=== PATIENT | female | born 1955 | race Caucasian/White ===

== ENCOUNTER 2020-08-22 12:38 | Emergency (ER) | payer MEDICARE, OTHER, SELFPAY ==
[2020-08-22] VITALS (7 sets, daily range): BP systolic 124–165; BP diastolic 65–108; PULSE 96–128; RESP 12–24; TEMP 36.9; O2SAT 92–97; BMI 29.5
--- NOTE | 2020-08-22 13:09 | DI.RAD.S_ITS ---
PROCEDURE: XR CHEST 1V INDICATIONS: chest pain/ sob TECHNIQUE: One view of the chest was acquired. COMPARISON: None. FINDINGS: Surgical changes and devices: None. Lungs and pleura: Lungs are clear. No pleural effusions or pneumothorax. Mediastinum: Mediastinal contours appear normal. Heart size is normal. Bones and chest wall: No suspicious bony lesions. Overlying soft tissues appear unremarkable. IMPRESSION: Normal for age, source of current chest pain symptoms is not seen. Dictated by: Fabien Powell M.D. on 08/22/2020 at 13:38 Approved by: Fabien Powell M.D. on 08/22/2020 at 13:38
[2020-08-22 13:22] LABS: Add Manual Diff / Slide Review NO; Basophils Absolute Auto 0 /uL (0-100); Basophils Percent Auto 0.4 % (0-2); Eosinophils Absolute Auto 300 /uL (0-450); Eosinophils Percent Auto 3.1 % (2-4); Hematocrit 39.8 % (36-46); Hemoglobin 13.9 g/dL (12.0-16.0); Lymphocytes Absolute Auto 1900 /uL (1100-4500); Mean Corpuscular Hemoglobin 33.2 PG (26-34); Mean Corpuscular Volume 94.7 fL (80-100); Monocytes Absolute Auto 900 /uL (0-900); Monocytes Percent Auto 9.1 % (3-14); Neutrophils Absolute Auto 6800 /uL (1500-7000); Neutrophils Percent Auto 68.4 % (50-75); Platelet Count 258 X10^3/uL (150-400); Red Blood Cell Count 4.21 X10^6/uL (4.0-5.2); Red Cell Distribution Width 12.3 % (11.6-14.8); White Blood Cell Count 9.9 X10^3/uL (4.5-11.0)
--- NOTE | 2020-08-22 13:27 | ED_ITS ---
HPI - Arrhythmia/Palpitations General Chief Complaint: Arrhythmia/Palpitations Stated Complaint: afib since today Time Seen by Provider: 08/22/20 12:50 Source: patient Mode of arrival: Ambulatory Limitations: no limitations History of Present Illness HPI narrative: Patient is a 64-year-old female with history of obstructive sleep apnea presenting today with heart palpitations. She has no history of atrial fibrillation but thinks that she may be in AFib because she felt her heart beating irregularly. She does not have a fitting CPAP machine so she has not been wearing it. She woke up this morning and was feeling some heart palpitations and shortness of breath. She said every time she took a deep breath she felt like she was short of breath. She does not feel short of breath now. She does have a history of esophageal spasm for which he takes Prilosec for twice a day she did feel like she had a spasm earlier today but it went away. She currently has no chest pain. She denies any fever. She denies lightheadedness dizziness or passing. She currently is in sinus rhythm on monitor. MD complaint: heart racing Duration: now resolved Related Data Allergies Allergy/AdvReac Type Severity Reaction Status Date / Time No Known Drug Allergies Allergy Verified 08/22/20 12:47 Review of Systems Review of Systems Narrative: GENERAL: Denies chills, fatigue, malaise, fever, sweats, travel HEENT: Denies sinus pain, ear pain, sore throat, difficulty swallowing, neck pain RESPIRATORY: See HPI CARDIOVASCULAR: Palpitations see HPI GASTROINTESTINAL: Denies nausea, vomiting, abdominal pain, diarrhea, constipation, melena. : Denies dysuria, frequency, incontinence, hematuria, urinary retention, flank pain. MUSCULOSKELETAL: Denies weakness, joint pain, or bony pain SKIN: No rash, no erythema, no pruritus NEUROLOGIC: Denies weakness, dizziness, headache, numbness, change in speech, confusion PSYCHIATRIC: No concerning psychosocial issues. 12 point review of systems is negative except for those stated above and HPI Patient History Medical History (Updated 08/22/20 @ 15:21 by Lary Mullen DO) Obstructive sleep apnea Social History Smoking Status: Never smoker Smoking Status: Never smoker alcohol intake frequency: a few times a month Substance Use Type: does not use Exam Initial Vital Signs Initial Vital Signs: Vital Signs Temperature 98.4 F 08/22/20 12:47 Pulse Rate 115 H 08/22/20 12:47 Respiratory Rate 12 08/22/20 12:47 Blood Pressure 152/108 H 08/22/20 12:47 Pulse Oximetry 97 08/22/20 12:47 GENERAL: Anxious 64-year-old female and in no acute distress. HEENT: Head atraumatic,EOMI, pupils reactive, face symmetric, moist mucous membranes CARDIOVASCULAR: Regular rate and rhythm without murmurs, rubs or gallops. RESPIRATORY: Breath sounds equal bilaterally, no wheezes rales or rhonchi. ABDOMEN: Soft, nontender. Normoactive bowel sounds all 4 quadrants. No guarding or rebound. EXTREMITIES: Normal range of motion, no clubbing or edema. Neurovascularly intact NEUROLOGICAL: Alert and oriented x4.Normal gait and speech. Cranial nerves II through XII grossly intact. SKIN: Warm, dry, no laceration, no petechiae, no rashes or lesions. Scores HEART Score Heart Score history: Slightly Suspicious Heart Score EKG: Normal Heart Score Age: > or = 65 years old Heart Score risk factors: 1-2 risk factors Heart Score troponin: < or = to normal limit Heart Score Total: 3 Wells' Criteria for PE Clinical signs and symptoms of DVT: No PE is #1 Dx or equally likely: No Heart rate > 100: Yes Immobilization at least 3 days or surg in previous 4 weeks: No History of PE or DVT: No Hemoptysis: No Malignancy w/Treatment within 6 months or palliative: No Wells' PE Score total: 1.5 Course Orders Ordered: ED Orders 08/22/20 13:04 Complete Blood Count AUTO DIFF Stat Comprehensive Metabolic Panel Stat Lipase Stat Troponin & CK Cardiac Panel Stat 08/22/20 13:09 XR chest 1V Stat Vital Signs Vital signs: Vital Signs - 8 hr 08/22/20 12:47 08/22/20 12:52 08/22/20 13:00 Temperature 98.4 F Pulse Rate 115 H 118 H 128 H Respiratory Rate 12 21 24 Blood Pressure 152/108 H 165/108 H Pulse Oximetry 97 95 94 08/22/20 13:30 08/22/20 14:00 08/22/20 14:30 Temperature Pulse Rate 108 H 102 H 100 H Respiratory Rate 19 15 18 Blood Pressure 146/93 H 132/65 135/86 Pulse Oximetry 94 93 92 08/22/20 15:00 Temperature Pulse Rate 96 H Respiratory Rate 23 Blood Pressure 124/71 Pulse Oximetry 93 MDM - Arrhythmia/Palpitations Lab Data Attestation: I reviewed the patient's lab results. Result diagrams: 08/22/20 13:04 08/22/20 13:04 Labs: Lab Results 08/22/20 08/22/20 Range/Units 13:04 13:04 WBC 9.9 (4.5-11.0) X10^3/uL RBC 4.21 (4.0-5.2) X10^6/uL Hgb 13.9 (12.0-16.0) g/dL Hct 39.8 (36-46) % MCV 94.7 (80-100) fL MCH 33.2 (26-34) PG MCHC 35.0 (30-36) % RDW 12.3 (11.6-14.8) % Plt Count 258 (150-400) X10^3/uL Neut % (Auto) 68.4 (50-75) % Lymph % (Auto) 19.0 L (25-40) % [place] % (Auto) 9.1 (3-14) % Eos % (Auto) 3.1 (2-4) % Baso % (Auto) 0.4 (0-2) % Neut # (Auto) 6800 (0884-6837) /uL Lymph # (Auto) 1900 (5876-6908) /uL [place] # (Auto) 900 (0-900) /uL Eos # (Auto) 300 (0-450) /uL Baso # (Auto) 0 (0-100) /uL Sodium 137 (137-145) mmol/L Potassium 4.0 (3.4-5.1) mmol/L Chloride 102 (98-107) mmol/L Carbon Dioxide 28 (22-32) mmol/L BUN 15 (7-17) mg/dL Creatinine 0.62 (0.52-1.04) mg/dL Estimated GFR > 60.0 (>60) mL/min BUN/Creatinine Ratio 24.2 H (6-22) Glucose 146 H (80-110) mg/dL Calcium 8.6 (8.4-10.2) mg/dL Total Bilirubin 0.5 (0.2-1.3) mg/dL AST 44 H (14-36) IU/L ALT 32 (<35) IU/L Alkaline Phosphatase 99 (38-126) U/L Total Creatine Kinase 46 (30-135) U/L CK-MB (CK-2) TNP CK-MB (CK-2) Rel Index TNP Troponin I < 0.012 (0.01-0.034) ng/mL Total Protein 7.4 (6.3-8.2) g/dL Albumin 4.1 (3.5-5.0) g/dL Globulin 3.3 (1.7-4.1) g/dL Albumin/Globulin Ratio 1.2 (1.0-2.8) Lipase 63 (23-300) U/L Imaging Data Chest x-ray: Radiologist's Impresson: PROCEDURE: XR CHEST 1V INDICATIONS: chest pain/ sob TECHNIQUE: One view of the chest was acquired. COMPARISON: None. FINDINGS: Surgical changes and devices: None. Lungs and pleura: Lungs are clear. No pleural effusions or pneumothorax. Mediastinum: Mediastinal contours appear normal. Heart size is normal. Bones and chest wall: No suspicious bony lesions. Overlying soft tissues appear unremarkable. IMPRESSION: Normal for age, source of current chest pain symptoms is not seen. Dictated by: Fabien Powell M.D. on 08/22/2020 at 13:38 Approved by: Fabien Powell M.D. on 08/22/2020 at 13:38 ECG Data Attestation: I personally reviewed and interpreted this ECG as follows: Prior ECG tracings: available for review Interpretation: Normal sinus rhythm rate 115 p.r. interval 130 QRS [address] changes no T-wave inversions similar to previous EKG MDM Narrative Medical decision making narrative: Patient is found to have PVCs occasionally on the monitor. She is quite an anxious person. Believe that her PVCs are what is causing her palpitations. She has no prior history of atrial fibrillation and it is not seen in the emergency department. She is having some shortness of breath but it is when she takes a deep breath she does not feel like she is feeling her lungs. She denies any shortness of breath with exertion in the started suddenly this morning. I do not suspect PE at this time. She has no recent travel no prior history of DVT. Discharge Plan Departure Patient Disposition: Home Clinical Impression: Ventricular premature beats Instructions: Premature Ventricular Beats Activity Restrictions/Additional Instructions: *You have been diagnosed with PVCs *What to do: You may require further cardiac testing, or a Holter monitor to monitor your heart rhythm *Continue to take medications as directed *Follow up with your primary care provider in 2-3 days *Return to ER if you should have worsening palpitations, shortness of breath, dizziness lightheadedness or passing or any new, worsening or concerning symptoms
[2020-08-22 13:32] LABS: Alanine Aminotransferase 32 IU/L (<35); Albumin 4.1 g/dL (3.5-5.0); Albumin Globulin Ratio 1.2 (1.0-2.8); Alkaline Phosphatase 99 U/L (38-126); Aspartate Aminotransferase 44 IU/L (14-36); BUN Creatinine Ratio 24.2 (6-22); Bilirubin Total 0.5 mg/dL (0.2-1.3); Blood Urea Nitrogen 15 mg/dL (7-17); Calcium 8.6 mg/dL (8.4-10.2); Carbon Dioxide 28 mmol/L (22-32); Chloride 102 mmol/L (98-107); Creatine Kinase 46 U/L (30-135); Estimated Glomerular Filt Rate > 60.0 mL/min (>60); Globulin 3.3 g/dL (1.7-4.1); Glucose 146 mg/dL (80-110); Lipase 63 U/L (23-300); Sodium 137 mmol/L (137-145); Total Protein 7.4 g/dL (6.3-8.2)
[2020-08-22 13:33] LABS: HEMOLYSIS 53 (0-50)
[2020-08-22 13:44] LABS: Troponin I < 0.012 ng/mL (0.01-0.034)
== END 2020-08-22 15:27 | disposition home or self-care (01) ==
PROVIDERS: Emergency Provider Emergency Medicine
DX: I49.3 Ventricular premature depolarization (principal); G47.33 Obstructive sleep apnea (adult) (pediatric)
CPT/HCPCS: 36415; 71045; 80053; 82550; 83690; 84484; 85025; 93005; 93010; 99283; 99284

== ENCOUNTER 2020-08-24 09:42 | Observation (INO) | payer MEDICARE, OTHER, SELFPAY ==
[2020-08-24] VITALS (13 sets, daily range): BP systolic 116–160; BP diastolic 74–98; PULSE 96–111; RESP 10–24; TEMP 36.3–37.3; O2SAT 91–97; BMI 31.4; BMI 31.6
--- NOTE | 2020-08-24 09:49 | DI.RAD.S_ITS ---
PROCEDURE: XR CHEST 1V INDICATIONS: chest pain TECHNIQUE: One view of the chest was acquired. COMPARISON: [facility], CR, XR CHEST 1V, 08/22/2020, 13:21. FINDINGS: Surgical changes and devices: None. Lungs and pleura: There is minimal blunting of the costophrenic angles. Low lung volumes are noted. This causes a crowded appearance to the lung markings and limits evaluation. No pneumothorax is seen. Mediastinum: Mediastinal contours appear normal. Heart size is normal. Bones and chest wall: No suspicious bony lesions. Age-appropriate bony degenerative changes are seen. Overlying soft tissues appear unremarkable. IMPRESSION: Low lung volumes with likely small bilateral pleural effusions. Dictated by: Macho Anderson M.D. on 08/24/2020 at 9:46 Approved by: Macho Anderson M.D. on 08/24/2020 at 9:46
--- NOTE | 2020-08-24 09:50 | DI.CT.S_ITS ---
PROCEDURE: CT ANGIO CHEST PE PROTOCOL INDICATIONS: right sided pain and hypoxia TECHNIQUE: After the administration of intravenous contrast, 2 mm thick sections acquired from the pulmonary apices to the posterior costophrenic angles. 3-dimensional maximum intensity projection (MIP) coronal and sagittal reformats were then acquired through the thorax. For radiation dose reduction, the following was used: automated exposure control, adjustment of mA and/or kV according to patient size. COMPARISON: [facility], CR, XR CHEST 1V, 08/24/2020, 10:27. [facility], CR, XR CHEST 1V, 08/22/2020, 13:21. FINDINGS: Image quality: Excellent. Pulmonary arteries: Pulmonary arteries are normal in size, and demonstrate no intraluminal filling defects to suggest central pulmonary embolism. Lungs and pleura: Patchy areas of ground-glass opacity can be seen. Dependent enhancing atelectasis can be seen. Low lung volumes are noted. This causes a crowded appearance to the lung markings and limits evaluation. No pneumothorax or pleural effusions can be seen. The central airways are patent. Mediastinum: Heart size is normal. Prominent pericardial fat can be seen. There is a moderate pericardial effusion. No mediastinal or hilar adenopathy. Thoracic aorta is normal in caliber and enhancement. Esophagus is normal in caliber. There is a moderate hiatal hernia. Bones and chest wall: No suspicious bony lesions. Ribs and thoracic spine appear intact throughout. Age-appropriate bony degenerative changes are seen. Accentuated thoracic kyphosis is seen. Thyroid gland demonstrates a 12 mm lesion on the right. No axillary or supraclavicular adenopathy. Abdomen: Visualized upper abdominal solid organs appear normal in the early arterial phase of enhancement. IMPRESSION: Negative for pulmonary embolism. Moderate pericardial effusion. Patchy areas of ground-glass opacity are seen, which are nonspecific, yet most likely related to pulmonary edema. 12 mm right thyroid lesion incidentally noted. When clinically appropriate, please consider a follow-up thyroid ultrasound for further evaluation. Incidental note is made of: Mild dependent atelectasis Prominent pericardial fat Moderate hiatal hernia Dictated by: Macho Anderson M.D. on 08/24/2020 at 10:12 Approved by: Macho Anderson M.D. on 08/24/2020 at 10:17
--- NOTE | 2020-08-24 09:55 | ED.CHESTPAIN ---
HPI - Chest Pain General Chief Complaint: Chest Pain Stated Complaint: Right sided chest pain,SOB Time Seen by Provider: 08/24/20 09:49 Source: patient, EMS and old records reviewed Mode of arrival: EMS Limitations: no limitations History of Present Illness HPI narrative: Patient is a 64-year-old female who presents with right-sided severe chest pain. She was actually seen and evaluated here 2 days prior with heart palpitations. She was noted to have PVCs at that time and discharged home. This morning at 5:00 a.m. she had severe sudden right-sided chest pain. It hurts every time she takes a breath position of comfort is upright it is worse when she lies back. She denies any cough. She says that she has been having some with her CPAP. MD complaint: chest pain Duration: constant Onset: during rest Pain location: right chest Severity: severe Severity scale (1-10): 10 Quality: sharp Pain radiation: none Related Data Allergies Allergy/AdvReac Type Severity Reaction Status Date / Time No Known Drug Allergies Allergy Verified 08/23/20 09:49 Review of Systems Review of Systems Narrative: GENERAL: Denies chills, fatigue, malaise, fever, sweats, travel HEENT: Denies sinus pain, ear pain, sore throat, difficulty swallowing, neck pain RESPIRATORY: See HPI CARDIOVASCULAR: See HPI GASTROINTESTINAL: Denies nausea, vomiting, abdominal pain, diarrhea, constipation, melena. : Denies dysuria, frequency, incontinence, hematuria, urinary retention, flank pain. MUSCULOSKELETAL: Denies weakness, joint pain, or bony pain SKIN: No rash, no erythema, no pruritus NEUROLOGIC: Denies weakness, dizziness, headache, numbness, change in speech, confusion PSYCHIATRIC: No concerning psychosocial issues. 12 point review of systems is negative except for those stated above and HPI Patient History Medical History Obstructive sleep apnea Social History Smoking Status: Never smoker Smoking Status: Never smoker alcohol intake frequency: a few times a month Substance Use Type: does not use Exam Initial Vital Signs Initial Vital Signs: Vital Signs Pulse Rate 106 H 08/24/20 09:51 Respiratory Rate 10 L 08/24/20 09:51 Pulse Oximetry 94 08/24/20 09:51 GENERAL: Alert 64-year-old female appears in pain and in no acute distress. HEENT: Head atraumatic,EOMI, pupils reactive, face symmetric, moist mucous membranes CARDIOVASCULAR: Regular rate and rhythm without murmurs, rubs or gallops. RESPIRATORY: Breath sounds equal bilaterally, no wheezes rales or rhonchi. Right-sided chest pain near sternum at pain is reproducible ABDOMEN: Soft, nontender. Normoactive bowel sounds all 4 quadrants. No guarding or rebound. EXTREMITIES: Normal range of motion, no clubbing or edema. Neurovascularly intact NEUROLOGICAL: Alert and oriented x4.Normal gait and speech. Cranial nerves II through XII grossly intact. SKIN: Warm, dry, no laceration, no petechiae, no rashes or lesions. Course Orders Ordered: ED Orders 08/24/20 09:42 COVID19 Stat 08/24/20 09:49 XR chest 1V Stat EKG-12 Lead Stat 08/24/20 09:50 CT angio chest PE protocol Stat 08/24/20 10:05 Complete Blood Count AUTO DIFF Stat Comprehensive Metabolic Panel Stat Lipase Stat Partial Thromboplastin Time Stat Prothrombin Time INR Stat Troponin & CK Cardiac Panel Stat 08/24/20 12:04 C-Reactive Protein Quant Stat Erythrocyte Sedimentation Rate Stat 08/24/20 12:18 Respiratory Panel (Film Array) Stat 08/24/20 12:20 EC echo doppler complete Urgent Colchicine (Colchicine 0.6 Mg Tablet) 0.6 mg PO BID SOBEIDA Indomethacin (Indomethacin 25 Mg Capsule) 25 mg PO Q8H SOBEIDA Discontinued Medications Aspirin (Aspirin 81 Mg Chew Tab) 324 mg PO NOW ONE Stop: 08/24/20 09:50 Last Admin: 08/24/20 10:12 Dose: 324 mg Documented by: SARAN Ketorolac Tromethamine (Ketorolac 60 Mg/2 Ml Vial) 30 mg IV NOW ONE Stop: 08/24/20 12:06 Last Admin: 08/24/20 12:12 Dose: 30 mg Documented by: Morphine Sulfate (Morphine 2 Mg/Ml Inj) 2 mg IV NOW ONE Stop: 08/24/20 09:57 Last Admin: 08/24/20 10:13 Dose: 2 mg Documented by: SARAN Vital Signs Vital signs: Vital Signs - 8 hr 08/24/20 09:51 08/24/20 10:00 08/24/20 10:22 Temperature 99.1 F Pulse Rate 106 H 108 H 110 H Respiratory Rate 10 L 24 24 Blood Pressure 160/90 H Pulse Oximetry 94 94 94 08/24/20 10:27 08/24/20 10:30 08/24/20 12:15 Temperature Pulse Rate 96 H 97 H 97 H Respiratory Rate 24 20 Blood Pressure 117/77 117/74 140/79 Pulse Oximetry 91 92 94 MDM - Chest Pain Lab Data Attestation: I reviewed the patient's lab results. Result diagrams: 08/24/20 10:05 08/24/20 10:05 Labs: Lab Results 08/24/20 08/24/20 08/24/20 Range/Units 09:42 10:05 10:05 WBC 15.2 H D (4.5-11.0) X10^3/uL RBC 4.41 (4.0-5.2) X10^6/uL Hgb 14.3 (12.0-16.0) g/dL Hct 41.8 (36-46) % MCV 94.8 (80-100) fL MCH 32.4 (26-34) PG MCHC 34.2 (30-36) % RDW 12.3 (11.6-14.8) % Plt Count 266 (150-400) X10^3/uL Neut % (Auto) 80.5 H (50-75) % Lymph % (Auto) 11.5 L (25-40) % [place] % (Auto) 5.7 (3-14) % Eos % (Auto) 1.7 L (2-4) % Baso % (Auto) 0.6 (0-2) % Neut # (Auto) 62277 H (0027-5196) /uL Lymph # (Auto) 1800 (4871-7576) /uL [place] # (Auto) 900 (0-900) /uL Eos # (Auto) 300 (0-450) /uL Baso # (Auto) 100 (0-100) /uL ESR (0-20) MM/HR PT 11.2 (10.1-12.7) SECONDS INR 1.0 (0.9-1.3) APTT 31 (26.4-36.2) SECONDS Sodium (137-145) mmol/L Potassium (3.4-5.1) mmol/L Chloride (98-107) mmol/L Carbon Dioxide (22-32) mmol/L BUN (7-17) mg/dL Creatinine (0.52-1.04) mg/dL Estimated GFR (>60) mL/min BUN/Creatinine Ratio (6-22) Glucose (80-110) mg/dL Calcium (8.4-10.2) mg/dL Total Bilirubin (0.2-1.3) mg/dL AST (14-36) IU/L ALT (<35) IU/L Alkaline Phosphatase (38-126) U/L Total Creatine Kinase (30-135) U/L CK-MB (CK-2) CK-MB (CK-2) Rel Index Troponin I (0.01-0.034) ng/mL C-Reactive Protein (<1.0) mg/dL Total Protein (6.3-8.2) g/dL Albumin (3.5-5.0) g/dL Globulin (1.7-4.1) g/dL Albumin/Globulin Ratio (1.0-2.8) Lipase (23-300) U/L SARS-CoV-2 (PCR) Negative (Negative) 08/24/20 08/24/20 08/24/20 Range/Units 10:05 10:05 10:05 WBC (4.5-11.0) X10^3/uL RBC (4.0-5.2) X10^6/uL Hgb (12.0-16.0) g/dL Hct (36-46) % MCV (80-100) fL MCH (26-34) PG MCHC (30-36) % RDW (11.6-14.8) % Plt Count (150-400) X10^3/uL Neut % (Auto) (50-75) % Lymph % (Auto) (25-40) % [place] % (Auto) (3-14) % Eos % (Auto) (2-4) % Baso % (Auto) (0-2) % Neut # (Auto) (5931-9789) /uL Lymph # (Auto) (1443-4116) /uL [place] # (Auto) (0-900) /uL Eos # (Auto) (0-450) /uL Baso # (Auto) (0-100) /uL ESR 12 (0-20) MM/HR PT (10.1-12.7) SECONDS INR (0.9-1.3) APTT (26.4-36.2) SECONDS Sodium 137 (137-145) mmol/L Potassium 4.4 (3.4-5.1) mmol/L Chloride 100 (98-107) mmol/L Carbon Dioxide 31 (22-32) mmol/L BUN 16 (7-17) mg/dL Creatinine 0.63 (0.52-1.04) mg/dL Estimated GFR > 60.0 (>60) mL/min BUN/Creatinine Ratio 25.4 H (6-22) Glucose 121 H (80-110) mg/dL Calcium 9.0 (8.4-10.2) mg/dL Total Bilirubin 0.5 (0.2-1.3) mg/dL AST 36 (14-36) IU/L ALT 37 H (<35) IU/L Alkaline Phosphatase 116 (38-126) U/L Total Creatine Kinase 45 (30-135) U/L CK-MB (CK-2) TNP CK-MB (CK-2) Rel Index TNP Troponin I < 0.012 (0.01-0.034) ng/mL C-Reactive Protein 1.8 H (<1.0) mg/dL Total Protein 7.8 (6.3-8.2) g/dL Albumin 4.5 (3.5-5.0) g/dL Globulin 3.3 (1.7-4.1) g/dL Albumin/Globulin Ratio 1.4 (1.0-2.8) Lipase 75 (23-300) U/L SARS-CoV-2 (PCR) (Negative) Imaging Data Chest x-ray: Radiologist's Impression: PROCEDURE: XR CHEST 1V INDICATIONS: chest pain TECHNIQUE: One view of the chest was acquired. COMPARISON: [facility], , XR CHEST 1V, 08/22/2020, 13:21. FINDINGS: Surgical changes and devices: None. Lungs and pleura: There is minimal blunting of the costophrenic angles. Low lung volumes are noted. This causes a crowded appearance to the lung markings and limits evaluation. No pneumothorax is seen. Mediastinum: Mediastinal contours appear normal. Heart size is normal. Bones and chest wall: No suspicious bony lesions. Age-appropriate bony degenerative changes are seen. Overlying soft tissues appear unremarkable. IMPRESSION: Low lung volumes with likely small bilateral pleural effusions. Dictated by: Macho Anderson M.D. on 08/24/2020 at 9:46 CT scan - chest: Radiologist's Impression: PROCEDURE: CT ANGIO CHEST PE PROTOCOL INDICATIONS: right sided pain and hypoxia TECHNIQUE: After the administration of intravenous contrast, 2 mm thick sections acquired from the pulmonary apices to the posterior costophrenic angles. 3-dimensional maximum intensity projection (MIP) coronal and sagittal reformats were then acquired through the thorax. For radiation dose reduction, the following was used: automated exposure control, adjustment of mA and/or kV according to patient size. COMPARISON: [facility], CR, XR CHEST 1V, 08/24/2020, 10:27. [facility], CR, XR CHEST 1V, 08/22/2020, 13:21. FINDINGS: Image quality: Excellent. Pulmonary arteries: Pulmonary arteries are normal in size, and demonstrate no intraluminal filling defects to suggest central pulmonary embolism. Lungs and pleura: Patchy areas of ground-glass opacity can be seen. Dependent enhancing atelectasis can be seen. Low lung volumes are noted. This causes a crowded appearance to the lung markings and limits evaluation. No pneumothorax or pleural effusions can be seen. The central airways are patent. Mediastinum: Heart size is normal. Prominent pericardial fat can be seen. There is a moderate pericardial effusion. No mediastinal or hilar adenopathy. Thoracic aorta is normal in caliber and enhancement. Esophagus is normal in caliber. There is a moderate hiatal hernia. Bones and chest wall: No suspicious bony lesions. Ribs and thoracic spine appear intact throughout. Age-appropriate bony degenerative changes are seen. Accentuated thoracic kyphosis is seen. Thyroid gland demonstrates a 12 mm lesion on the right. No axillary or supraclavicular adenopathy. Abdomen: Visualized upper abdominal solid organs appear normal in the early arterial phase of enhancement. IMPRESSION: Negative for pulmonary embolism. Moderate pericardial effusion. Patchy areas of ground-glass opacity are seen, which are nonspecific, yet most likely related to pulmonary edema. 12 mm right thyroid lesion incidentally noted. When clinically appropriate, please consider a follow-up thyroid ultrasound for further evaluation. Incidental note is made of: Mild dependent atelectasis Prominent pericardial fat Moderate hiatal hernia Dictated by: Macho Anderson M.D. on 08/24/2020 at 10:12 ECG Data Attestation: I personally reviewed and interpreted this ECG as follows: Prior ECG tracings: available for review Interpretation: Normal sinus rhythm rate 101 p.r. interval 140 QRS [address] elevation noted in lead 2 only no T-wave inversions no NV depression no evidence of torsades. MDM Narrative Medical decision making narrative: 1205 p.m. discussed case with cardiology Dr. Ahumada to recommends Toradol now, indomethacin 75 mg extended release twice a day along with colchicine 0.6 mg twice a day and need an echocardiogram. With pericardial effusion recommends admission. [address] Amato updated on Cardiology recommendations and accept patient to observation Discharge Plan Departure Patient Disposition: Admitted as Observation Clinical Impression: Pericarditis Admit Date/Time: 08/24/20 12:31 Admit Provider: Louis Reeder
[2020-08-24] MEDS: ASPIRIN 81 MG CHEW TAB 324 MG PO (10:12)
[2020-08-24 10:13] LABS: Add Manual Diff / Slide Review NO; Basophils Absolute Auto 100 /uL (0-100); Basophils Percent Auto 0.6 % (0-2); Eosinophils Absolute Auto 300 /uL (0-450); Eosinophils Percent Auto 1.7 % (2-4); Hematocrit 41.8 % (36-46); Hemoglobin 14.3 g/dL (12.0-16.0); Lymphocytes Absolute Auto 1800 /uL (1100-4500); Lymphocytes Percent Auto 11.5 % (25-40); Mean Corpuscular HGB Conc 34.2 % (30-36); Mean Corpuscular Hemoglobin 32.4 PG (26-34); Mean Corpuscular Volume 94.8 fL (80-100); Monocytes Absolute Auto 900 /uL (0-900); Monocytes Percent Auto 5.7 % (3-14); Neutrophils Absolute Auto 12300 /uL (1500-7000); Neutrophils Percent Auto 80.5 % (50-75); Platelet Count 266 X10^3/uL (150-400); Red Blood Cell Count 4.41 X10^6/uL (4.0-5.2); Red Cell Distribution Width 12.3 % (11.6-14.8); White Blood Cell Count 15.2 X10^3/uL (4.5-11.0)
[2020-08-24] MEDS: MORPHINE 2 MG/ML INJ IV (10:13)
[2020-08-24 10:15] LABS: COVID19 -Nasal RAPID Negative (Negative)
[2020-08-24 10:21] LABS: Prothrombin Time 11.2 SECONDS (10.1-12.7)
[2020-08-24 10:24] LABS: PTT Partial Thromboplastin Tim 31 SECONDS (26.4-36.2)
[2020-08-24 10:26] LABS: Alanine Aminotransferase 37 IU/L (<35); Albumin 4.5 g/dL (3.5-5.0); Albumin Globulin Ratio 1.4 (1.0-2.8); Alkaline Phosphatase 116 U/L (38-126); Aspartate Aminotransferase 36 IU/L (14-36); BUN Creatinine Ratio 25.4 (6-22); Bilirubin Total 0.5 mg/dL (0.2-1.3); Blood Urea Nitrogen 16 mg/dL (7-17); Carbon Dioxide 31 mmol/L (22-32); Chloride 100 mmol/L (98-107); Creatine Kinase 45 U/L (30-135); Estimated Glomerular Filt Rate > 60.0 mL/min (>60); Globulin 3.3 g/dL (1.7-4.1); Glucose 121 mg/dL (80-110); HEMOLYSIS < 15 (0-50); Lipase 75 U/L (23-300); Potassium 4.4 mmol/L (3.4-5.1); Sodium 137 mmol/L (137-145); Total Protein 7.8 g/dL (6.3-8.2)
[2020-08-24 10:38] LABS: Troponin I < 0.012 ng/mL (0.01-0.034)
[2020-08-24] MEDS: KETOROLAC 60 MG/2 ML VIAL 30 MG IV (12:12)
--- NOTE | 2020-08-24 12:20 | DI.ECHO.S_ITS ---
[facility] +---------+ : : [address] : [address] : : : : [id number] : : : : Phone: [phone]+ Echocardiogram Report + + :Name: GAIL CANDELARIA Study Date: 08/25/2020 Height: 66 in : :[facility] ReadingLocation: Weight: 195 lb : : Gender: Female BSA: 2.0 m2 : :: 1955 Age: 64 yrs BP: 126/95 mmHg: :Reason For Study: PERICARDIAL EFFUSION : :Ordering Physician: JAIME, : :JUAN MANUEL CONTRERAS Performed By: Maya Fam : :Referring: JUAN MANUEL SANDOVAL : + + Interpretation Summary 1) Mildly increased left ventricular thickness (concentric) with normal size, normal wall motion, and normal systolic function (EF 60-65%). 2) Normal right ventricular size and function. 3) No significant valvular abnormalities. 4) Pericardial space with circumferential echogenicity and trivial pericardial effusion. 5) No prior Echo available for comparison. Procedure: A two-dimensional transthoracic echocardiogram with color flow and Doppler was performed. The study quality was technically difficult. There is no prior echocardiogram noted for this patient. The heart rate ranged between 85-114 bpm during the study. Left Ventricle: The left ventricle is normal in size. There is mild concentric left ventricular hypertrophy. The ejection fraction is estimated to be 55-60%. Left ventricular systolic function appears normal without focal wall motion abnormalities. Right Ventricle: The right ventricle is normal in size and function. Atria: Both atria are normal in size. There is no Doppler evidence for an interatrial shunt. Mitral Valve: The mitral valve is normal in structure and function. There is trace mitral regurgitation. Aortic Valve: The aortic valve is grossly normal. The aortic valve opens well. There is no aortic valve stenosis. No aortic regurgitation is present. Tricuspid Valve: The tricuspid valve is normal in structure and function. Pulmonary artery pressures cannot be estimated because of the lack of a measurable TR jet velocity but the IVC suggests a CVP of around 8 mmHg. There is trace tricuspid regurgitation. Pulmonic Valve: The pulmonic valve is not well seen, but is grossly normal. There is no pulmonic valvular regurgitation. Great Vessels: The aortic root is normal size. The dimensions of the ascending aorta are normal. The IVC is dilated (diameter is greater than 2.1 cm) yet it collapses greater than 50% with a sniff. This suggests a right atrial pressure of 8 mm Hg. Pericardium/ Pleura Pericardial space with circumferential echogenicity and trivial pericardial effusion. There is no pleural effusion. MMode/2D Measurements & Calculations LVIDd: 4.7 cm LVOT diam: 2.0 cm LVIDs: 3.1 cm Ao root diam: 3.5 cm FS: 33.1 % asc Aorta Diam: 3.2 cm IVSd: 1.2 cm Ao Arch Diam (Prox Trans): 3.5 cm LVPWd: 1.2 cm LV lugo. diameter/BSA (cm/m^2): 2.4 LV sys. diameter/BSA (cm/m^2): 1.6 LA A2 area: 16.0 cm2 RA long axis: 3.8 cm LA A4 area: 11.4 cm2 RA area: 9.5 cm2 LA length (vol): 4.5 cm RA vol: 19.9 ml LA vol: 34.4 ml RA : 10.1 ml/m2 LA vol index: 17.4 ml/m2 IVC diam: 2.2 cm RVD1 (basal): 3.1 cm TAPSE: 1.7 cm Doppler Measurements & Calculations Ao V2 max: 129.1 cm/sec LVOT Max Jose: 114.0 cm/sec Ao V2 mean: 91.4 cm/sec LV V1 max P.2 mmHg Ao max P.7 mmHg LV V1 VTI: 22.0 cm Ao mean P.7 mmHg ELLA(I,D): 3.0 cm2 Ao V2 VTI: 23.5 cm ELLA(V,D): 2.8 cm2 sev ratio: 0.94 ELLA indexed to BSA (cm^2/m^2): 1.5 MV E max jose: 77.1 cm/sec PA V2 max: 84.7 cm/sec MV A max jose: 103.2 cm/sec PA V2 mean: 60.1 cm/sec MV E/A: 0.75 PA mean P.6 mmHg Med Peak E' Jose: 6.6 cm/sec PA pr(Accel): 15.6 mmHg E/E' med: 11.6 Lat Peak E' Jose: 6.7 cm/sec E/E' lat: 11.6 E/e' average: 11.6 MV dec time: 0.23 sec SV(LVOT): 70.5 ml Reading Physician:12:36 PM
[2020-08-24 12:23] LABS: C-Reactive Protein Quant 1.8 mg/dL (<1.0)
--- NOTE | 2020-08-24 12:31 | PC.NURSE ---
Pt presented with R sided chest pain; labs sent, ekg, CT and cxray done; pericarditis present and patient will be admitted. Will give report to floor RN when she calls back ([phone]).
[2020-08-24 12:33] LABS: Erythrocyte Sedimentation Rate 12 MM/HR (0-20)
--- NOTE | 2020-08-24 14:06 | PM.HP.1 ---
History of Present Illness History of Present Illness Date Patient Seen: 08/24/20 Time Patient Seen: 14:06 Chief complaint: Right sided chest pain,SOB Narrative: Irene Montoya is a 64 year old female with PMH of GERD, SEVERINO who presented to the ER today with R sided chest pain and shortness of breath. Over the past week approximately she has experienced fatigue and dyspnea on exertion. She presumed this was secondary to her SEVERINO but few days ago noted she was having palpitations and she was worried about atrial fibrillation. She actually came into the ER few days ago and had a negative troponin, negative chest x-ray, and she was noted to have PVCs on telemetry. She was discharged home and was actually feeling well up until early this morning when she had severe sudden right-sided chest pain. Her chest pain was right-sided and worse with inspiration, and improved with leaning forward. It was associated with shortness of breath which also improved with her leaning forward. She also feels as if her throat is full. She denies any lower extremity edema, recent fever, chills, nasal congestion, sinus congestion, cough. She has been having some epigastric discomfort that she related to GERD and increased her home omeprazole to twice daily instead of once in the morning about a week ago. She also received her 2nd COVID-19 vaccine on August 18. She only had injection site pain after her 2nd dose. She denies rash, joint pains, or myalgias. In the emergency room, she was mildly tachycardic and occasionally hypertensive. She was saturating well on room air. She was afebrile. Initial laboratory evaluation revealed a leukocytosis with a WBC of 15.2. The remainder of her CBC was unremarkable. Chemistries were unremarkable. CRP was mildly elevated at 1.8. Troponin was negative. Of note troponin was also negative in her prior ER visit 2 days ago. COVID-19 testing was negative. Full respiratory panel is pending. CXR showed low lung volumes with possible bilateral small pleural effusions. CT angiogram did not show evidence of pulmonary infarction but did show a moderate pericardial effusion. Patient History Medical History GERD (gastroesophageal reflux disease) Obstructive sleep apnea Surgical History History of section S/P [facility]-BSO Family & Social History Family history unavailable: Yes (Adopted, family history not known) Safety & Behavioral: Feels Safe in Current Yes Environment Been Physically Hurt or No Threatened By a Person Tobacco & Substance use: Smoking Status Never smoker alcohol intake frequency a few times a month Substance Use Type does not use Meds Home Medications and Allergies Home Medications Medication Instructions Recorded Confirmed Type omeprazole 1 tab PO BID 08/24/20 08/24/20 History Allergies Allergy/AdvReac Type Severity Reaction Status Date / Time No Known Drug Allergies Allergy Verified 08/23/20 09:49 Review of Systems Review of Systems Narrative: All other systems reviewed with the patient and are negative unless otherwise stated. Exam Vital Signs (past 8 hours): - 08/24/20 09:51 08/24/20 10:00 08/24/20 10:22 Temperature 99.1 F Pulse Rate 106 H 108 H 110 H Respiratory Rate 10 L 24 24 Blood Pressure 160/90 H Pulse Oximetry 94 94 94 08/24/20 10:27 08/24/20 10:30 08/24/20 12:15 Temperature Pulse Rate 96 H 97 H 97 H Respiratory Rate 24 20 Blood Pressure 117/77 117/74 140/79 Pulse Oximetry 91 92 94 08/24/20 13:15 Temperature 97.5 F L Pulse Rate 111 H Respiratory Rate 16 Blood Pressure 138/98 H Pulse Oximetry 96 Oxygen Delivery Method Room Air Narrative Exam Narrative: GENERAL APPEARANCE: Well developed, well nourished, in no acute distress. SKIN: Inspection of the skin reveals no rashes, ulcerations or petechiae. HEENT: Normocephalic atraumatic, extraocular muscles are intact, oropharynx is clear and mucous membranes are moist, neck is supple without adenopathy NECK: Supple and symmetric. There was no thyroid enlargement but there is mild R thyroid fullness, no tenderness, or masses were felt. CHEST: Normal AP diameter and normal contour without any kyphoscoliosis. LUNGS: Auscultation of the lungs revealed no wheezes, rhonchi, or rales. CARDIOVASCULAR: There was a tachycardic rate and regular rhythm without any murmurs, gallops, rubs. Peripheral pulses were 2+ and symmetric. ABDOMEN: Soft and nontender with normal bowel sounds. No ascites was noted. MUSCULOSKELETAL: There was no tenderness or effusions noted. Muscle strength and tone were normal. EXTREMITIES: No cyanosis, clubbing or edema. NEUROLOGIC: Alert and oriented x 3. Normal affect. Non-focal. Objective ECG Impression: Sinus tachycardia. Imaging Chest x-ray: My impression: Decreased inspiration but blunting of bilateral costophrenic angles and bialteral haziness possible due to lung volumes or vascular congestion. Radiologist's impression: PROCEDURE: XR CHEST 1V INDICATIONS: chest pain TECHNIQUE: One view of the chest was acquired. COMPARISON: [facility], , XR CHEST 1V, 08/22/2020, 13:21. FINDINGS: Surgical changes and devices: None. Lungs and pleura: There is minimal blunting of the costophrenic angles. Low lung volumes are noted. This causes a crowded appearance to the lung markings and limits evaluation. No pneumothorax is seen. Mediastinum: Mediastinal contours appear normal. Heart size is normal. Bones and chest wall: No suspicious bony lesions. Age-appropriate bony degenerative changes are seen. Overlying soft tissues appear unremarkable. IMPRESSION: Low lung volumes with likely small bilateral pleural effusions. CT scan - chest: Radiologist's impression: IMPRESSION: Negative for pulmonary embolism. Moderate pericardial effusion. Patchy areas of ground-glass opacity are seen, which are nonspecific, yet most likely related to pulmonary edema. 12 mm right thyroid lesion incidentally noted. When clinically appropriate, please consider a follow-up thyroid ultrasound for further evaluation. Incidental note is made of: Mild dependent atelectasis Prominent pericardial fat Moderate hiatal hernia Labs Result Diagrams: 08/24/20 10:05 08/24/20 10:05 Labs: Laboratory Results - last 24 hr 08/24/20 08/24/20 08/24/20 09:42 10:05 10:05 WBC 15.2 H D RBC 4.41 Hgb 14.3 Hct 41.8 MCV 94.8 MCH 32.4 MCHC 34.2 RDW 12.3 Plt Count 266 Neut % (Auto) 80.5 H Lymph % (Auto) 11.5 L [place] % (Auto) 5.7 Eos % (Auto) 1.7 L Baso % (Auto) 0.6 Neut # (Auto) 33161 H Lymph # (Auto) 1800 [place] # (Auto) 900 Eos # (Auto) 300 Baso # (Auto) 100 ESR PT 11.2 INR 1.0 APTT 31 Sodium Potassium Chloride Carbon Dioxide BUN Creatinine Estimated GFR BUN/Creatinine Ratio Glucose Calcium Total Bilirubin AST ALT Alkaline Phosphatase Total Creatine Kinase CK-MB (CK-2) CK-MB (CK-2) Rel Index Troponin I C-Reactive Protein Total Protein Albumin Globulin Albumin/Globulin Ratio Lipase SARS-CoV-2 (PCR) Negative 08/24/20 08/24/20 08/24/20 10:05 10:05 10:05 WBC RBC Hgb Hct MCV MCH MCHC RDW Plt Count Neut % (Auto) Lymph % (Auto) [place] % (Auto) Eos % (Auto) Baso % (Auto) Neut # (Auto) Lymph # (Auto) [place] # (Auto) Eos # (Auto) Baso # (Auto) ESR 12 PT INR APTT Sodium 137 Potassium 4.4 Chloride 100 Carbon Dioxide 31 BUN 16 Creatinine 0.63 Estimated GFR > 60.0 BUN/Creatinine Ratio 25.4 H Glucose 121 H Calcium 9.0 Total Bilirubin 0.5 AST 36 ALT 37 H Alkaline Phosphatase 116 Total Creatine Kinase 45 CK-MB (CK-2) TNP CK-MB (CK-2) Rel Index TNP Troponin I < 0.012 C-Reactive Protein 1.8 H Total Protein 7.8 Albumin 4.5 Globulin 3.3 Albumin/Globulin Ratio 1.4 Lipase 75 SARS-CoV-2 (PCR) Assessment & Plan Assessment & Plan narrative: Irene Montoya is a 64 year old female with PMH of GERD, SEVERINO who presented to the ER today with R sided chest pain and shortness of breath. Over the past week approximately she has experienced fatigue and dyspnea on exertion, admitted with pericardial effusion and pericarditis. 1. Pericarditis with moderate pericardial effusion, acute, present on admission - TTE ordered, unable to perform after 12:30 on weekends, okay for now to be tomorrow. Will continue telemetery. - cardiology consulted in the ER, recommended colchicine 0.6 mg BID and indomethacin 25 mg TID for treatment of pericarditis. - Respiratory panel pending, COVID 19 negative. Consider reaction to COVID 19 vaccine. - will repeat troponin at 8 hours, initial negative and negative 2 days ago. EKG sinus tachycardia without ST changes, no electrical alternans. 2. SEVERINO - continue home cpap 3. GERD - continue home PPI, 20 mg BID. Will replace with formulary protonix. Code: full, surrogate decision maker is daughter carmenza Dispo: admit under observation status, anticipate discharge home tomorrow if improved symptomatically and no evidence of tamponade on TTE. DVT: SCDs. hold chemical while on NSAID therapy for pericarditis, patient ambulatory. also possible but unlikely procedure if she clinically worsens..
--- NOTE | 2020-08-24 14:11 | PC.NURSE ---
Addendum entered by Yuli Le R.N. 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 She denies any alcohol withdrawal. Indocin just given with some chocolate pudding. Original Note: Assess- Patient is A&OX3, she states that her sternum and chest are not hurting at this time, and that toradol given down in the ER has really helped her. Skin check done and can be seen under physical assessment. Patients lung sounds cta, she is breathing shallow. She is on RA and her sats are 97%. No oxygen needed. Patient is on Tele and reading is Sinus Tach. She is heplocked and resting in bed comfortably.
[2020-08-24 14:48] LABS: Adenovirus Not Detected (Not Detect); Bordetella pertussis Not Detected (Not Detect); Chlamydophila pneumoniae Not Detected (Not Detect); Coronavirus 229E Not Detected (Not Detect); Coronavirus HKU1 Not Detected (Not Detect); Coronavirus NL 63 Not Detected (Not Detect); Coronavirus OC43 Not Detected (Not Detect); Human Metapneumovirus Not Detected (Not Detect); Human Rhinovirus/Enterovirus Not Detected (Not Detect); Influenza A Not Detected (Not Detect); Influenza B Not Detected (Not Detect); Mycoplasma pneumoniae Not Detected (Not Detect); Parainfluenza Virus 1 Not Detected (Not Detect); Parainfluenza Virus 2 Not Detected (Not Detect); Parainfluenza Virus 3 Not Detected (Not Detect); Parainfluenza Virus 4 Not Detected (Not Detect); Respiratory Syncytial Virus Not Detected (Not Detect); SARS- CoV-2 Not Detected (Not Detecte)
[2020-08-24] MEDS: INDOMETHACIN 25 MG CAPSULE PO ×2 (15:10→22:08)
[2020-08-24 18:44] LABS: NT-proBNP (BNP-Adult 18+) 61 pg/mL (<125)
[2020-08-24 18:46] LABS: Troponin I < 0.012 ng/mL (0.01-0.034)
[2020-08-24] MEDS: ACETAMINOPHEN 325 MG TABLET 650 MG PO (18:49)
[2020-08-24] MEDS: CALCIUM CARBONATE 500 MG TAB 1000 MG PO (19:00)
[2020-08-24] MEDS: COLCHICINE 0.6 MG TABLET PO (20:21)
[2020-08-24] MEDS: PANTOPRAZOLE 20 MG TABLET PO (20:21)
[2020-08-24] MEDS: SODIUM CHLORIDE 0.9% FLUSH 10 ML IV (21:07)
[2020-08-25 00:12] VITALS: BP 126/95; PULSE 114; RESP 20; TEMP 36.2; O2SAT 95
--- NOTE | 2020-08-25 00:40 | PC.NURSE ---
Addendum entered by Taylor Burns R.N. 08/25/20 06:52: States she was able to sleep last night and is less SOB with exertion this morning and chest pain has also lessened to 4/10. RA sat 94% Original Note: 2342: patient is alert and oriented. Respirations shallow and hurts to take a deep breath. Noted to be SOB when up to bathroom. Breath sounds diminished especially at bases. Using home CPAP and had RT add adaptor so oxygen can be bled into CPAP at 3L/min and sat is at 96%. States pain is 5-6/10 but better than has been and declined offer of pain medication. HRR but tachy at 124 when up to bathroom but currently is in upper 90's. Denies nausea. BT hypoactive; abdomen is soft. Denies dysuria, frequency or urgency with urination. Is able to move self in bed. Up to bathroom with SBA; denies weakness or unsteadiness. Fall risk score is low.
[2020-08-25 05:54] VITALS: BP 133/75; PULSE 96; RESP 18; TEMP 36.6; O2SAT 92
[2020-08-25 05:57] VITALS: O2SAT 94
[2020-08-25] MEDS: INDOMETHACIN 25 MG CAPSULE PO ×2 (05:57→14:11)
[2020-08-25 06:02] LABS: Add Manual Diff / Slide Review NO; Basophils Absolute Auto 100 /uL (0-100); Basophils Percent Auto 0.5 % (0-2); Eosinophils Absolute Auto 300 /uL (0-450); Eosinophils Percent Auto 2.5 % (2-4); Hematocrit 39.6 % (36-46); Hemoglobin 13.8 g/dL (12.0-16.0); Lymphocytes Absolute Auto 1800 /uL (1100-4500); Lymphocytes Percent Auto 14.4 % (25-40); Mean Corpuscular HGB Conc 34.8 % (30-36); Monocytes Absolute Auto 1500 /uL (0-900); Monocytes Percent Auto 11.6 % (3-14); Neutrophils Absolute Auto 8900 /uL (1500-7000); Platelet Count 252 X10^3/uL (150-400); Red Blood Cell Count 4.17 X10^6/uL (4.0-5.2); Red Cell Distribution Width 12.5 % (11.6-14.8); White Blood Cell Count 12.6 X10^3/uL (4.5-11.0)
[2020-08-25 06:14] LABS: Blood Urea Nitrogen 23 mg/dL (7-17); Carbon Dioxide 33 mmol/L (22-32); Chloride 98 mmol/L (98-107); Estimated Glomerular Filt Rate > 60.0 mL/min (>60); Glucose 140 mg/dL (80-110); HEMOLYSIS < 15 (0-50); Magnesium 1.9 mg/dL (1.6-2.3); Potassium 4.1 mmol/L (3.4-5.1); Sodium 135 mmol/L (137-145)
[2020-08-25] MEDS: PANTOPRAZOLE 20 MG TABLET PO (06:47)
[2020-08-25 07:11] VITALS: BP 135/83; PULSE 96; RESP 16; TEMP 36.4; O2SAT 94
[2020-08-25] MEDS: SODIUM CHLORIDE 0.9% FLUSH 10 ML IV (08:51)
[2020-08-25] MEDS: COLCHICINE 0.6 MG TABLET PO (08:51)
--- NOTE | 2020-08-25 11:43 | PC.NURSE ---
Patient denies chest pain and sob. She is comfortable and has had her Echo.. Awaiting results from the doctor. Resting and visting with her daughter in law
[2020-08-25 12:41] VITALS: BP 117/74; PULSE 98; RESP 16; TEMP 36.7; O2SAT 92
--- NOTE | 2020-08-25 13:12 | PM.DS.1 ---
History of Present Illness History of Present Illness Date Patient Seen: 08/25/20 Time Patient Seen: 13:12 Chief complaint: Right sided chest pain,SOB Narrative: Irene Montoya is a 64 year old female with PMH of GERD, SEVERINO who presented to the ER today with R sided chest pain and shortness of breath. Over the past week approximately she has experienced fatigue and dyspnea on exertion. She presumed this was secondary to her SEVERINO but few days ago noted she was having palpitations and she was worried about atrial fibrillation. She actually came into the ER few days ago and had a negative troponin, negative chest x-ray, and she was noted to have PVCs on telemetry. She was discharged home and was actually feeling well up until early this morning when she had severe sudden right-sided chest pain. Her chest pain was right-sided and worse with inspiration, and improved with leaning forward. It was associated with shortness of breath which also improved with her leaning forward. She also feels as if her throat is full. She denies any lower extremity edema, recent fever, chills, nasal congestion, sinus congestion, cough. She has been having some epigastric discomfort that she related to GERD and increased her home omeprazole to twice daily instead of once in the morning about a week ago. She also received her 2nd COVID-19 vaccine on August 18. She only had injection site pain after her 2nd dose. She denies rash, joint pains, or myalgias. In the emergency room, she was mildly tachycardic and occasionally hypertensive. She was saturating well on room air. She was afebrile. Initial laboratory evaluation revealed a leukocytosis with a WBC of 15.2. The remainder of her CBC was unremarkable. Chemistries were unremarkable. CRP was mildly elevated at 1.8. Troponin was negative. Of note troponin was also negative in her prior ER visit 2 days ago. COVID-19 testing was negative. Full respiratory panel is pending. CXR showed low lung volumes with possible bilateral small pleural effusions. CT angiogram did not show evidence of pulmonary infarction but did show a moderate pericardial effusion. Discharge Providers Provider Date of admission: 08/24/20 12:31 Discharge Date: 08/25/20 Discharge provider: Louis Reeder DO Summary Hospital Course Discharge Diagnosis: 1. Pericarditis with moderate pericardial effusion, acute, present on admission, improved 2. SEVERINO, chronic 3. GERD, chronic Hospital Course: Irene Montoya is a 64 year old female with PMH of GERD, SEVERINO who presented to the ER with R sided chest pain and shortness of breath. CTA showed moderate pericardial effusion and given clinical history she was diagnosed with pericarditis. Her EKG was unremarkable. She had no elevation in her troponins and her symptoms improved with NSAID therapy. Telemetry overnight showed no acute events and her symptoms were improved the following day with colchicine and indomethacin. Echocardiogram showed an increase in Echogenicity of her pericardium and H trace pericardial effusion much improved from her CT imaging. She should continue on NSAID therapy and start to taper from indomethacin after her symptoms resolved. She should continue on colchicine for at least 3 months. She will continue on her home omeprazole twice daily given need for NSAIDs upon discharge. Status at Discharge Cognitive/behavioral status at discharge: oriented Exam Vital Signs (past 8 hours): - 08/25/20 05:54 08/25/20 05:57 08/25/20 07:11 Temperature 97.9 F 97.6 F Pulse Rate 96 H 96 H Respiratory Rate 18 16 Blood Pressure 133/75 135/83 Pulse Oximetry 92 94 94 08/25/20 12:41 Temperature 98.0 F Pulse Rate 98 H Respiratory Rate 16 Blood Pressure 117/74 Pulse Oximetry 92 Oxygen Delivery Method Room Air Oxygen Flow Rate 0 Narrative Exam Narrative: GENERAL APPEARANCE: Well developed, well nourished, in no acute distress. SKIN: Inspection of the skin reveals no rashes, ulcerations or petechiae. HEENT: Normocephalic atraumatic, extraocular muscles are intact, oropharynx is clear and mucous membranes are moist, neck is supple without adenopathy NECK: Supple and symmetric. There was no thyroid enlargement but there is mild R thyroid fullness, no tenderness, or masses were felt. CHEST: Normal AP diameter and normal contour without any kyphoscoliosis. LUNGS: Auscultation of the lungs revealed no wheezes, rhonchi, or rales. CARDIOVASCULAR: There was a tachycardic rate and regular rhythm without any murmurs, gallops, rubs. Peripheral pulses were 2+ and symmetric. ABDOMEN: Soft and nontender with normal bowel sounds. No ascites was noted. MUSCULOSKELETAL: There was no tenderness or effusions noted. Muscle strength and tone were normal. EXTREMITIES: No cyanosis, clubbing or edema. NEUROLOGIC: Alert and oriented x 3. Normal affect. Non-focal. Objective Labs Result Diagrams: 08/25/20 05:52 08/25/20 05:52 Labs: Laboratory Results - last 24 hr 08/24/20 08/24/20 08/24/20 12:25 18:06 18:06 WBC RBC Hgb Hct MCV MCH MCHC RDW Plt Count Neut % (Auto) Lymph % (Auto) [place] % (Auto) Eos % (Auto) Baso % (Auto) Neut # (Auto) Lymph # (Auto) [place] # (Auto) Eos # (Auto) Baso # (Auto) Sodium Potassium Chloride Carbon Dioxide BUN Creatinine Estimated GFR BUN/Creatinine Ratio Glucose Calcium Magnesium Troponin I < 0.012 NT-Pro-B Natriuret Pep 61 Chlamy pneumoniae PCR Not detected Adenovirus (PCR) Not detected B.parapertussis DNA PCR Not detected Coronavirus OC43 (PCR) Not detected Coronavirus HKU1 (PCR) Not detected Coronavirus 229E (PCR) Not detected SARS-CoV-2 (PCR) Not detected Coronavirus NL63 (PCR) Not detected Human Metapneumovir PCR Not detected Influenza Type A (PCR) Not detected Influenza Type B (PCR) Not detected M. pneumoniae (PCR) Not detected Parainfluenza 1 (PCR) Not detected Parainfluenza 2 (PCR) Not detected Parainfluenza 3 (PCR) Not detected Parainfluenza 4 (PCR) Not detected RSV (PCR) Not detected Entero/Rhino (PCR) Not detected 08/25/20 08/25/20 05:52 05:52 WBC 12.6 H RBC 4.17 Hgb 13.8 Hct 39.6 MCV 95.0 MCH 33.0 MCHC 34.8 RDW 12.5 Plt Count 252 Neut % (Auto) 71.0 Lymph % (Auto) 14.4 L [place] % (Auto) 11.6 Eos % (Auto) 2.5 Baso % (Auto) 0.5 Neut # (Auto) 8900 H Lymph # (Auto) 1800 [place] # (Auto) 1500 H Eos # (Auto) 300 Baso # (Auto) 100 Sodium 135 L Potassium 4.1 Chloride 98 Carbon Dioxide 33 H BUN 23 H Creatinine 0.82 Estimated GFR > 60.0 BUN/Creatinine Ratio 28.0 H Glucose 140 H Calcium 9.0 Magnesium 1.9 Troponin I NT-Pro-B Natriuret Pep Chlamy pneumoniae PCR Adenovirus (PCR) B.parapertussis DNA PCR Coronavirus OC43 (PCR) Coronavirus HKU1 (PCR) Coronavirus 229E (PCR) SARS-CoV-2 (PCR) Coronavirus NL63 (PCR) Human Metapneumovir PCR Influenza Type A (PCR) Influenza Type B (PCR) M. pneumoniae (PCR) Parainfluenza 1 (PCR) Parainfluenza 2 (PCR) Parainfluenza 3 (PCR) Parainfluenza 4 (PCR) RSV (PCR) Entero/Rhino (PCR) [facility] Medical History GERD (gastroesophageal reflux disease) Obstructive sleep apnea Surgical History History of section S/P [facility]-BSO Social History household members: none Smoking Status: Former smoker Discharge Plan Discharge Plan Patient Disposition: Home Provider Discharge Comment: You were admitted to the hospital with presumed pericarditis and pericardial effusion. Your echocardiogram showed improvement in the size of the effusion and no significant effects on its function. You should start to taper indomethacin about 2 weeks after your symptoms resolve. Colchicine should continue for 3 months. Please continue taking your increased omeprazole dosing while on NSAID therapy. Discharge orders & Medications Prescriptions: New colchicine 0.6 mg Tablet 0.6 mg PO BID 90 Days Qty: 180 RF: 0 indomethacin 25 mg capsule 25 mg PO Q8H 30 Days Qty: 90 RF: 0 Continued omeprazole 20 mg 1 tab PO BID RF: 0 Diet/Activity/Treatments Diet: Diet as Tolerated Activity: As tolerated Discharge Data Attending Provider: Louis Reeder VTE Deep Vein Thrombosis/Pulmonary Embolism Present on Admission: No
--- NOTE | 2020-08-25 14:40 | CM.DANOTE ---
Discharge Planning/Care Management DCP: assessment: case received, EMR reviewed, discussed in Team Rounds. Dr. Reeder stated tests were in process and he anticipated pt would be able to d/c home later today. A d/c order is now in place for home setting. Pt's daughter in law is in room and will be transporting her home after all d/c paperwork is completed. CM Discharge Assessment Start: 08/25/20 14:39 Freq: Status: Active Protocol: Document 08/25/20 14:39 ITV (Rec: 08/25/20 14:40 ITV [id number]) Discharge Planning Assessment Advance Directives? Yes Advance Directives on File No History Provided By Medical Record Prior Living Arrangements House Household Members none Is patient alert and oriented? Yes Discharge Plan Home
== END 2020-08-25 14:15 | disposition home or self-care (01) ==
LOC: ED 12:19 → AC 12:32
PROVIDERS: Admitting Provider Internal Medicine; Emergency Provider Emergency Medicine; Referring Provider Emergency Medicine; Visit Provider Internal Medicine
DX: I30.9 Acute pericarditis, unspecified (principal); R07.9 Chest pain, unspecified; R06.02 Shortness of breath; R53.83 Other fatigue; K21.9 Gastro-esophageal reflux disease without esophagitis; G47.33 Obstructive sleep apnea (adult) (pediatric); Z20.822 Contact with and (suspected) exposure to COVID-19
CPT/HCPCS: 36415; 71045; 71275; 80048; 80053; 82550; 83690; 83735; 83880; 84484; 85025; 85610; 85651; 85730; 86140; 87633; 87635; 93005; 93010; 93306; 94760; 96374; 96375; 99283; 99284; C9803; G0378; J1885; J2270; Q9967

== ENCOUNTER → 2020-09-18 13:16 | Outpatient (CLI) | payer MEDICARE, OTHER, SELFPAY ==
[2020-08-24 14:42] VITALS: BMI 31.6
== END ==
PROVIDERS: PCP Family Medicine; Referring Provider Family Medicine; Visit Provider Family Medicine
DX: M85.852 Other specified disorders of bone density and structure, left thigh (principal); Z78.0 Asymptomatic menopausal state; Z90.722 Acquired absence of ovaries, bilateral; Z87.891 Personal history of nicotine dependence
CPT/HCPCS: 77080

== ENCOUNTER → 2020-10-09 13:14 | Outpatient (CLI) | payer MEDICARE, OTHER, SELFPAY ==
[2020-08-24 14:42] VITALS: BMI 31.6
--- NOTE | 2020-10-09 13:15 | DI.MG.S_ITS ---
BILATERAL DIGITAL DIAGNOSTIC MAMMOGRAM 3D/2D: 10/09/2020 CLINICAL: Short follow up, due bilateral. Comparison is made to exams dated: 12/01/2019 mammogram, 04/24/2019 mammogram, and 04/14/2019 mammogram - [facility]. The tissue of both breasts is heterogeneously dense. This may lower the sensitivity of mammography. There is irregular equal density architectural distortion with an indistinct margin in the left breast at 1 o'clock posterior depth. This is not significantly changed. No other significant masses, calcifications, or other findings are seen in either breast. IMPRESSION: INCOMPLETE: NEEDS ADDITIONAL IMAGING EVALUATION The irregular equal density architectural distortion in the left breast is indeterminate. An ultrasound is recommended. This exam was interpreted at Station ID: [id number]. NOTE: For mammograms, a report in lay terms will be sent to the patient. Approximately 15% of breast malignancies will not be visualized mammographically. In the management of a palpable breast mass, a negative mammogram must not discourage biopsy of a clinically suspicious lesion. Electronically Signed By: Rigoberto Lyn M.D. ddp/:10/09/2020 13:52:36 ACR BI-RADS Category 0: Incomplete 3340F
--- NOTE | 2020-10-09 13:52 | DI.US.S_ITS ---
LIMITED ULTRASOUND OF LEFT BREAST: 10/09/2020 CLINICAL: Patient returns today to evaluate a focal asymmetry in the left breast. Comparison is made to exams dated: 10/09/2020 mammogram - [facility], 12/01/2019 mammogram, 04/24/2019 mammogram, 04/14/2019 mammogram, 10/12/2018 mammogram, and 03/22/2018 stereotactic biopsy - [facility]. Real-time ultrasound of the left breast 12-2 o'clock region was performed on the area of interest. No discrete cystic or solid mass lesion identified in the area of mammographic abnormality. IMPRESSION: PROBABLY BENIGN There are no abnormalities seen in the left breast to correspond with the architectural distortion at 12-2 o'clock. A follow-up mammogram in 6 months is recommended to demonstrate 2 year stability. This exam was interpreted at Station ID: [id number]. Electronically Signed By: Rigoberto Lyn M.D. ddalberto/:10/09/2020 14:23:34 letter sent: Followup Recommended Ultrasound BI-RADS: 3 Probably benign
== END ==
PROVIDERS: PCP Family Medicine; Referring Provider Family Medicine; Visit Provider Family Medicine
DX: R92.8 Other abnormal and inconclusive findings on diagnostic imaging of breast (principal)
CPT/HCPCS: 76642; 77066; G0279

== ENCOUNTER → 2020-10-10 13:36 | Outpatient (CLI) | payer MEDICARE, OTHER, SELFPAY ==
[2020-08-24 14:42] VITALS: BMI 31.6
--- NOTE | 2020-10-10 13:38 | DI.ECHO.S_ITS ---
[facility] +---------+ : : [address] : : : : [id number] : : : : Phone: [phone]+ Echocardiogram Report + + :Name: GAIL CANDELARIA Study Date: 10/10/2020 Height: 66 in : :[facility] ReadingLocation: Weight: 198 lb: : Gender: Female BSA: 2.0 m2 : :: 1955 Age: 64 yrs : :Reason For Study: PERICARDIAL EFFUSION, PERICARDITIS : :Ordering Physician: VIOLETA, : :TIFFANIE Performed By: Maya Fam : :Referring: TIFFANIE MCDANIEL : + + Interpretation Summary There is mild concentric left ventricular hypertrophy. Left ventricular ejection fraction is estimated to be 60 +/- 5%. Pericardial space with circumferential echogenicity suggestive of organization and a small loculated pericardial effusion. There are no echocardiographic indications of cardiac tamponade. This is unchanged compared to the previous study. Procedure: A two-dimensional transthoracic echocardiogram with color flow and Doppler was performed in limited views only to assess pericardial effusion and pericarditis.. Left Ventricle: The left ventricle is normal in size. There is mild concentric left ventricular hypertrophy. Left ventricular ejection fraction is estimated to be 60 +/- 5%. Left ventricular wall motion is normal. Right Ventricle: The right ventricle is normal in size and function. Atria: The left atrial size is normal. Right atrial size is normal. Great Vessels: The IVC is of normal diameter and collapses greater than 50% with a sniff. This suggests a low right atrial pressure of 3 mm Hg. Pericardium/ Pleura Pericardial space with circumferential echogenicity suggestive of organization and a small loculated pericardial effusion. There are no echocardiographic indications of cardiac tamponade. This is unchanged compared to the previous study. There is no pleural effusion. MMode/2D Measurements & Calculations LVIDd: 4.7 cm LA A2 area: 21.9 cm2 LVIDs: 3.3 cm LA A4 area: 20.1 cm2 FS: 28.8 % LA length (vol): 5.7 cm IVSd: 1.0 cm LA vol: 65.4 ml LVPWd: 1.2 cm LA vol index: 32.8 ml/m2 LV lugo. diameter/BSA (cm/m^2): 2.4 LV sys. diameter/BSA (cm/m^2): 1.7 RA long axis: 5.0 cm RVD1 (basal): 2.6 cm RA area: 15.9 cm2 TAPSE: 2.0 cm RA vol: 43.0 ml RA : 21.6 ml/m2 IVC diam: 1.7 cm Reading Physician:03:15 PM
== END ==
PROVIDERS: PCP Family Medicine; Referring Provider Family Medicine; Visit Provider Family Medicine
DX: I31.3 Pericardial effusion (noninflammatory) (principal); I30.0 Acute nonspecific idiopathic pericarditis; I51.7 Cardiomegaly
CPT/HCPCS: 93307

== ENCOUNTER → 2021-03-31 13:04 | Outpatient (CLI) | payer MEDICARE, OTHER, SELFPAY ==
[2020-08-24 14:42] VITALS: BMI 31.6
--- NOTE | 2021-03-31 13:05 | DI.MG.S_ITS ---
UNILATERAL LEFT DIGITAL DIAGNOSTIC MAMMOGRAM 3D/2D: 03/31/2021 CLINICAL: Short term follow up for the left breast. Comparison is made to exams dated: 10/09/2020 ultrasound, 10/09/2020 mammogram - [facility], 12/01/2019 mammogram, 04/24/2019 mammogram, 10/12/2018 mammogram, and 03/22/2018 mammogram - [facility]. The tissue of left breast is heterogeneously dense. This may lower the sensitivity of mammography. There is a stable region of mild irregular architectural distortion with indistinct margins in the left breast at 1 o'clock posterior depth. This appears similar to the prior studies. No other significant masses or calcifications are seen in the breast. IMPRESSION: BENIGN There is no mammographic evidence of malignancy. A 1 year screening mammogram is recommended. The small area of architectural distortion in the left breast at 1 o'clock is benign given stability of greater than 2 years and absence of a sonographic correlate on prior evaluation. This exam was interpreted at Station ID: [id number]. NOTE: For mammograms, a report in lay terms will be sent to the patient. Approximately 15% of breast malignancies will not be visualized mammographically. In the management of a palpable breast mass, a negative mammogram must not discourage biopsy of a clinically suspicious lesion. Electronically Signed By: Rigoberto evans/:03/31/2021 14:37:05 letter sent: Normal Exam ACR BI-RADS Category 2: Benign Finding(s) 3342F
== END ==
PROVIDERS: PCP Family Medicine; Referring Provider Family Medicine; Visit Provider Family Medicine
DX: R92.8 Other abnormal and inconclusive findings on diagnostic imaging of breast (principal)
CPT/HCPCS: 77065; G0279

== ENCOUNTER → 2021-05-24 09:46 | Outpatient (CLI) | payer MEDICARE, OTHER, SELFPAY ==
[2020-08-24 14:42] VITALS: BMI 31.6
--- NOTE | 2021-05-24 09:47 | DI.RAD.S_ITS ---
PROCEDURE: XR FOOT LT MIN 3V INDICATIONS: possible break TECHNIQUE: 3 views of the foot were acquired. COMPARISON: None. FINDINGS: Bones: There is a comminuted fracture seen involving the distal 5th metatarsal shaft. There is a mildly displaced fracture involving the 4th metatarsal shaft. No additional intra-articular involvement can be seen. An additional minimally displaced fractures seen involving the proximal 5th metatarsal. Incidental note is made of an accessory ossicle, an os peroneum. Age-appropriate bony degenerative changes are seen. Incidental note is made of an enthesophyte at the Achilles insertion. Soft tissues: No tibiotalar joint effusion. Achilles tendon appears normal. IMPRESSION: Acute appearing 4th and 5th metatarsal shaft fractures, without intra-articular involvement. An additional fracture can be seen involving the proximal 5th metatarsal, which may be subacute. Dictated by: Macho Anderson M.D. on 05/24/2021 at 9:11 Approved by: Macho Anderson M.D. on 05/24/2021 at 9:13
== END ==
PROVIDERS: PCP Family Medicine; Referring Provider Physician Assistant; Visit Provider Physician Assistant
DX: S92.342A Displaced fracture of fourth metatarsal bone, left foot, initial encounter for closed fracture (principal); S92.352A Displaced fracture of fifth metatarsal bone, left foot, initial encounter for closed fracture; W19.XXXA Unspecified fall, initial encounter
CPT/HCPCS: 73630

== ENCOUNTER → 2021-10-01 12:12 | Outpatient (CLI) | payer MEDICARE, OTHER, SELFPAY ==
[2020-08-24 14:42] VITALS: BMI 31.6
[2021-10-01 13:17] LABS: Add Manual Diff / Slide Review NO; Basophils Absolute Auto 0 /uL (0-100); Basophils Percent Auto 0.5 % (0-2); Eosinophils Absolute Auto 200 /uL (0-450); Eosinophils Percent Auto 4.1 % (2-4); Hematocrit 40.8 % (36-46); Hemoglobin 14.1 g/dL (12.0-16.0); Lymphocytes Absolute Auto 1800 /uL (1100-4500); Mean Corpuscular HGB Conc 34.7 % (30-36); Mean Corpuscular Hemoglobin 32.7 PG (26-34); Mean Corpuscular Volume 94.3 fL (80-100); Monocytes Absolute Auto 600 /uL (0-900); Monocytes Percent Auto 9.4 % (3-14); Neutrophils Absolute Auto 3400 /uL (1500-7000); Platelet Count 249 X10^3/uL (150-400); Red Blood Cell Count 4.33 X10^6/uL (4.0-5.2); Red Cell Distribution Width 11.9 % (11.6-14.8)
[2021-10-01 13:31] LABS: Alanine Aminotransferase 24 IU/L (<35); Albumin 4.4 g/dL (3.5-5.0); Albumin Globulin Ratio 1.3 (1.0-2.8); Alkaline Phosphatase 67 U/L (38-126); Aspartate Aminotransferase 33 IU/L (14-36); BUN Creatinine Ratio 23.3 (6-22); Bilirubin Total 0.5 mg/dL (0.2-1.3); Blood Urea Nitrogen 20 mg/dL (7-17); C-Reactive Protein Quant < 0.5 mg/dL (<1.0); Calcium 9.5 mg/dL (8.4-10.2); Carbon Dioxide 31 mmol/L (22-32); Chloride 101 mmol/L (98-107); Estimated Glomerular Filt Rate > 60.0 mL/min (>60); Globulin 3.3 g/dL (1.7-4.1); Glucose 89 mg/dL (80-110); HEMOLYSIS < 15 (0-50); Potassium 4.3 mmol/L (3.4-5.1); Sodium 139 mmol/L (137-145); Total Protein 7.7 g/dL (6.3-8.2)
[2021-10-01 13:35] LABS: Rheumatoid Factor < 8.6 IU/mL (<12.0)
[2021-10-01 13:46] LABS: Erythrocyte Sedimentation Rate 1 MM/HR (0-20)
[2021-10-01 14:16] LABS: Vitamin B12 976 pg/mL (239-931)
[2021-10-01 15:52] LABS: Vitamin D 25 Hydroxy (D3) 67.4 ng/mL (30.0-100.0)
[2021-10-03 17:46] LABS: ANA Screen, IFA Negative (.)
== END ==
PROVIDERS: PCP Family Medicine; Referring Provider Family Medicine; Visit Provider Family Medicine
DX: E55.9 Vitamin D deficiency, unspecified (principal); I31.9 Disease of pericardium, unspecified; M79.609 Pain in unspecified limb; R20.2 Paresthesia of skin; Z13.21 Encounter for screening for nutritional disorder; Z13.228 Encounter for screening for other metabolic disorders
CPT/HCPCS: 36415; 80053; 82306; 82607; 85025; 85651; 86038; 86140; 86430

== ENCOUNTER → 2021-10-13 13:52 | Outpatient (CLI) | payer MEDICARE, OTHER, SELFPAY ==
[2020-08-24 14:42] VITALS: BMI 31.6
--- NOTE | 2021-10-13 13:56 | DI.MG.S_ITS ---
BILATERAL DIGITAL SCREENING MAMMOGRAM 3D/2D WITH CAD: 10/13/2021 CLINICAL: Routine screening. Comparison is made to exams dated: 03/31/2021 mammogram, 10/09/2020 mammogram - [facility], 12/01/2019 mammogram, 04/24/2019 mammogram, 04/14/2019 mammogram, and 10/12/2018 mammogram - [facility]. The tissue of both breasts is heterogeneously dense. This may lower the sensitivity of mammography. Current study was also evaluated with a Computer Aided Detection (CAD) system. No significant masses, calcifications, or other findings are seen in either breast. There has been no significant interval change. IMPRESSION: NEGATIVE There is no mammographic evidence of malignancy. A 1 year screening mammogram is recommended. This exam was interpreted at Station ID: [id number]. NOTE: For mammograms, a report in lay terms will be sent to the patient. Approximately 15% of breast malignancies will not be visualized mammographically. In the management of a palpable breast mass, a negative mammogram must not discourage biopsy of a clinically suspicious lesion. Electronically Signed By: Jackelin baig/rahel:10/13/2021 16:16:13 letter sent: Normal Exam ACR BI-RADS Category 1: Negative 3341F
== END ==
PROVIDERS: PCP Family Medicine; Referring Provider Family Medicine; Visit Provider Family Medicine
DX: Z12.31 Encounter for screening mammogram for malignant neoplasm of breast (principal)
CPT/HCPCS: 77063; 77067

== ENCOUNTER → 2022-10-19 08:34 | Outpatient (CLI) | payer MEDICARE, OTHER, SELFPAY ==
[2020-08-24 14:42] VITALS: BMI 31.6
--- NOTE | 2022-10-19 | DI.MG.S_ITS ---
BILATERAL DIGITAL SCREENING MAMMOGRAM 3D/2D WITH CAD: 10/19/2022 Comparison is made to exams dated: 10/13/2021 mammogram, 10/09/2020 mammogram - [facility], 12/01/2019 mammogram, and 04/14/2019 mammogram - [facility]. Both breasts are heterogeneously dense, which may obscure small masses (category c / 51-75% glandular tissue). Current study was also evaluated with a Computer Aided Detection (CAD) system. There are benign calcifications in both breasts. There also are benign post operative findings in the left breast. No significant masses, calcifications, or other findings are seen in either breast. There has been no significant interval change. IMPRESSION: BENIGN There is no mammographic evidence of malignancy. A 1 year screening mammogram is recommended. Based on the Tyrer Cuzick model (a risk assessment model) the patient's lifetime risk is 8.7% and her 10 year risk is 4.8%. According to the ACR, ACS, and NCCN guidelines, an annual breast MRI exam along with mammogram is recommended if the patient's lifetime risk is 20% or greater. This exam was interpreted at Station ID: [id number]. NOTE: For mammograms, a report in lay terms will be sent to the patient. Approximately 15% of breast malignancies will not be visualized mammographically. In the management of a palpable breast mass, a negative mammogram must not discourage biopsy of a clinically suspicious lesion. Electronically Signed By: Valeriano ferguson/rahel:10/19/2022 09:59:52 letter sent: Normal Exam ACR BI-RADS Category 2: Benign Finding(s) 3342F
== END ==
PROVIDERS: PCP Family Medicine; Referring Provider Family Medicine; Visit Provider Family Medicine
DX: Z12.31 Encounter for screening mammogram for malignant neoplasm of breast (principal)
CPT/HCPCS: 77063; 77067

== ENCOUNTER → 2022-12-22 14:56 | Outpatient (CLI) | payer MEDICARE, OTHER, SELFPAY ==
[2020-08-24 14:42] VITALS: BMI 31.6
--- NOTE | 2022-12-22 14:58 | DI.RAD.S_ITS ---
PROCEDURE: XR ANKLE RT MIN 3V INDICATIONS: chronic right ankle pain TECHNIQUE: 3 views of the ankle were acquired. COMPARISON: None. FINDINGS: Bones: No displaced fracture or dislocation. There are mild degenerative changes. Plantar calcaneal enthesopathy. Soft tissues: No suspicious calcifications. IMPRESSION: Mild degenerative changes. Plantar calcaneal enthesopathy. No acute radiographic abnormality. If there is high concern for further derangement, consider MRI evaluation. Dictated by: Krish Gutiérrez M.D. on 12/22/2022 at 16:53 Approved by: Krish Gutiérrez M.D. on 12/22/2022 at 16:55
== END ==
PROVIDERS: PCP Family Medicine; Referring Provider Family Medicine; Visit Provider Family Medicine
DX: M25.571 Pain in right ankle and joints of right foot (principal); M77.31 Calcaneal spur, right foot
CPT/HCPCS: 73610

== ENCOUNTER → 2022-12-25 | Outpatient (CLI) | payer MEDICARE, OTHER, SELFPAY ==
[2020-08-24 14:42] VITALS: BMI 31.6
--- NOTE | 2022-12-25 09:51 | DI.RAD.S_ITS ---
Bone Density Report Name: GAIL CANDELARIA Age: 67 Sex: Female Ethnicity: White Date of : 1955 Indication: osteopenia; Referring Provider: TIFFANIE MCDANIEL Study: Bone densitometry was performed. Exam Date: December 25, 2022 Accession number: [id number] Bone Density: Region BMD T-score Z-score Classification AP Spine(L1-L4) 0.833 -1.9 0.1 Osteopenia Femoral Neck (Left) 0.619 -2.1 -0.3 Osteopenia Total Hip (Left) 0.753 -1.6 -0.1 Osteopenia Femoral Neck (Right) 0.651 -1.8 0.0 Osteopenia Total Hip (Right) 0.740 -1.7 -0.2 Osteopenia Total Hip Mean 0.747 -1.7 -0.2 Osteopenia World Health Organization criteria for BMD impression classify patients as: Normal (T-score at or above -1.0), Osteopenia (T-score between -1.0 and -2.5), or Osteoporosis (T-score at or below -2.5). 10-year Fracture Risk(1): Major Osteoporotic Fracture 11% Hip Fracture 2.0% Reported Risk Factors: [place] (), Neck BMD=0.619, BMI=30.7 (1) FRAX(R) Version 3.08. Fracture probability calculated for an untreated patient. Fracture probability may be lower if the patient has received treatment. Previous Exams: -- Region Exam Age BMD T-score BMD Change BMD Change Date g/cm2 vs Baseline vs Previous -- AP Spine (L1-L4) 12/25/2022 67 0.833 -1.9 -0.071 (-7.9%)# -0.071 (-7.9%)# 09/18/2020 64 0.904 -1.3 Total Hip(Left) 12/25/2022 67 0.753 -1.6 0.013 (1.8%)# 0.013 (1.8%)# 09/18/2020 64 0.739 -1.7 Total Hip(Right) 12/25/2022 67 0.740 -1.7 0.028 (4.0%)# 0.028 (4.0%)# 09/18/2020 64 0.712 -1.9 -- *Denotes significance at 95% confidence level, LSC for AP Spine = 0.022 g/cm2, LSC for Total Hip = 0.027 g/cm2 # Denotes dissimilar scan types or analysis methods Impression: The patient has low bone mass, based on the Left Femoral Neck T-score. The patient has an estimated ten-year risk of hip fracture of 2% and an estimated ten-year risk of major fracture of 11%, based on the WHO FRAX algorithm. No significant bone loss was observed. Discussion: BONE DENSITY IS LOW AT ONE OR MORE SKELETAL SITES. This patient's lowest T-score is low at one or more skeletal sites. It meets the World Health Organization's (WHO) criteria for low bone mass (T-score between -1.0 and -2.5). The patient's 10-year risk of fracture as calculated by FRAX is less than the threshold where pharmacological therapy is recommended by the National Osteoporosis Foundation (NOF). However, all treatment decisions require clinical judgment and consideration of individual patient factors, including patient preferences, comorbidities, previous drug use, risk factors not captured in the FRAX model (e.g., frailty, falls, vitamin D deficiency, increased bone turnover, interval significant decline in bone density) and possible under or overestimation of fracture risk by FRAX. The patient should follow a healthful lifestyle (good nutrition with adequate calcium and vitamin D, and appropriate weight-bearing exercise). Follow-Up: Consider repeating this study in 2 to 3 years to reassess this patient's status, or sooner if there is some new clinical indication. Reported by: VALORIE MCCRARY MD on 12/25/2022 12:53:00 PM.
[2022-12-25 12:07] LABS: Add Manual Diff / Slide Review NO; Basophils Absolute Auto 0 /uL (0-100); Basophils Percent Auto 0.4 % (0-2); Eosinophils Absolute Auto 300 /uL (0-450); Eosinophils Percent Auto 3.4 % (2-4); Hematocrit 39.1 % (36-46); Hemoglobin 13.8 g/dL (12.0-16.0); Lymphocytes Absolute Auto 1800 /uL (1100-4500); Lymphocytes Percent Auto 23.5 % (25-40); Mean Corpuscular HGB Conc 35.2 % (30-36); Mean Corpuscular Hemoglobin 32.6 PG (26-34); Mean Corpuscular Volume 92.6 fL (80-100); Monocytes Absolute Auto 600 /uL (0-900); Monocytes Percent Auto 8.3 % (3-14); Neutrophils Absolute Auto 5000 /uL (1500-7000); Neutrophils Percent Auto 64.4 % (50-75); Platelet Count 274 X10^3/uL (150-400); Red Blood Cell Count 4.23 X10^6/uL (4.0-5.2); Red Cell Distribution Width 12.4 % (11.6-14.8); White Blood Cell Count 7.7 X10^3/uL (4.5-11.0)
[2022-12-25 12:24] LABS: Alanine Aminotransferase 17 IU/L (<35); Albumin 3.9 g/dL (3.5-5.0); Albumin Globulin Ratio 1.2 (1.0-2.8); Alkaline Phosphatase 79 U/L (38-126); Aspartate Aminotransferase 23 IU/L (14-36); BUN Creatinine Ratio 36.6 (6-22); Bilirubin Total 0.6 mg/dL (0.2-1.3); Blood Urea Nitrogen 26 mg/dL (7-17); Calcium 8.7 mg/dL (8.4-10.2); Carbon Dioxide 30 mmol/L (22-32); Chloride 101 mmol/L (98-107); Cholesterol 171 mg/dL (140-199); Estimated Glomerular Filt Rate > 60 mL/min (>60); Globulin 3.3 g/dL (1.7-4.1); Glucose 87 mg/dL (80-110); HDL Cholesterol 46 mg/dL (40-60); HEMOLYSIS < 15 (0-50); LDL Cholesterol Calculated 107 mg/dL (<100); Potassium 4.2 mmol/L (3.4-5.1); Sodium 137 mmol/L (137-145); Total Protein 7.2 g/dL (6.3-8.2); Triglycerides 91 mg/dL (35-150)
== END ==
PROVIDERS: PCP Family Medicine; Referring Provider Family Medicine; Visit Provider Family Medicine
DX: M85.852 Other specified disorders of bone density and structure, left thigh (principal); Z78.0 Asymptomatic menopausal state; K21.9 Gastro-esophageal reflux disease without esophagitis; R20.2 Paresthesia of skin; M79.609 Pain in unspecified limb; Z90.710 Acquired absence of both cervix and uterus
CPT/HCPCS: 36415; 77080; 80053; 80061; 84443; 85025

== ENCOUNTER → 2023-02-11 09:54 | Outpatient (CLI) | payer MEDICARE, OTHER, SELFPAY ==
[2020-08-24 14:42] VITALS: BMI 31.6
--- NOTE | 2023-02-11 09:55 | DI.RAD.S_ITS ---
PROCEDURE: XR CHEST 2V INDICATIONS: Cough TECHNIQUE: 2 views of the chest were acquired. COMPARISON: None. FINDINGS: Surgical changes and devices: None. Lungs and pleura: Lungs are clear. No pleural effusions or pneumothorax. Mediastinum: Mediastinal contours are normal. Heart size is normal. Bones and chest wall: No suspicious bony abnormalities. Soft tissues appear unremarkable. IMPRESSION: No acute cardiopulmonary abnormality. Approved by: Nicko Caro M.D. on 02/11/2023 at 13:50
== END ==
PROVIDERS: PCP Family Medicine; Referring Provider Nurse Practitioner Family; Visit Provider Nurse Practitioner Family
DX: R05.9 Cough, unspecified (principal)
CPT/HCPCS: 71046

== ENCOUNTER → 2023-09-30 10:40 | Outpatient (CLI) | payer MEDICARE, OTHER, SELFPAY ==
[2020-08-24 14:42] VITALS: BMI 31.6
[2023-09-30 11:37] LABS: Add Manual Diff / Slide Review NO; Basophils Absolute Auto 0 /uL (0-100); Basophils Percent Auto 0.6 % (0-2); Eosinophils Absolute Auto 400 /uL (0-450); Eosinophils Percent Auto 5.1 % (2-4); Hematocrit 43.1 % (36-46); Hemoglobin 14.9 g/dL (12.0-16.0); Lymphocytes Absolute Auto 2100 /uL (1100-4500); Lymphocytes Percent Auto 29.8 % (25-40); Mean Corpuscular HGB Conc 34.7 % (30-36); Mean Corpuscular Volume 98.2 fL (80-100); Monocytes Absolute Auto 700 /uL (0-900); Monocytes Percent Auto 10.4 % (3-14); Neutrophils Absolute Auto 3800 /uL (1500-7000); Neutrophils Percent Auto 54.1 % (50-75); Platelet Count 282 X10^3/uL (150-400); Red Blood Cell Count 4.39 X10^6/uL (4.0-5.2)
[2023-09-30 11:44] LABS: HEMOLYSIS < 15 (0-50)
[2023-09-30 11:49] LABS: Alanine Aminotransferase 23 IU/L (<35); Albumin 4.3 g/dL (3.5-5.0); Albumin Globulin Ratio 1.3 (1.0-2.8); Alkaline Phosphatase 96 U/L (38-126); Aspartate Aminotransferase 30 IU/L (14-36); BUN Creatinine Ratio 16.9 (6-22); Bilirubin Total 0.6 mg/dL (0.2-1.3); Blood Urea Nitrogen 12 mg/dL (7-17); Calcium 9.2 mg/dL (8.4-10.2); Carbon Dioxide 32 mmol/L (22-32); Chloride 101 mmol/L (98-107); Estimated Glomerular Filt Rate > 60 mL/min (>60); Globulin 3.3 g/dL (1.7-4.1); Glucose 81 mg/dL (80-110); Potassium 4.4 mmol/L (3.4-5.1); Sodium 138 mmol/L (137-145); Total Protein 7.6 g/dL (6.3-8.2)
[2023-09-30 12:46] LABS: Erythrocyte Sedimentation Rate 19 MM/HR (0-20)
[2023-09-30 18:32] LABS: C-Reactive Protein Quant 0.8 mg/dL (<1.0)
[2023-10-01 02:06] LABS: Rheumatoid Factor < 8.6 IU/mL (<12.0)
[2023-10-02 14:50] LABS: CCP Antibodies IgG/IgA 0 units (0-19)
== END ==
PROVIDERS: PCP Family Medicine; Referring Provider Family Medicine; Visit Provider Family Medicine
DX: M19.90 Unspecified osteoarthritis, unspecified site (principal); K21.9 Gastro-esophageal reflux disease without esophagitis; J42 Unspecified chronic bronchitis
CPT/HCPCS: 36415; 80053; 85025; 85651; 86140; 86200; 86430

== ENCOUNTER → 2023-10-22 08:11 | Outpatient (CLI) | payer MEDICARE, OTHER, SELFPAY ==
[2020-08-24 14:42] VITALS: BMI 31.6
--- NOTE | 2023-10-22 | DI.MG.S_ITS ---
BILATERAL DIGITAL SCREENING MAMMOGRAM 3D/2D WITH CAD: 10/22/2023 CLINICAL: Routine screening. Comparison is made to exams dated: 10/19/2022 mammogram, 10/13/2021 mammogram, 10/09/2020 mammogram, and 03/31/2021 mammogram - [facility]. Both breasts are heterogeneously dense, which may obscure small masses (category c / 51-75% glandular tissue). Current study was also evaluated with a Computer Aided Detection (CAD) system. There are benign calcifications in both breasts. There also are benign post operative findings and biopsy clip in the left breast. No significant masses, calcifications, or other findings are seen in either breast. There has been no significant interval change. IMPRESSION: BENIGN There is no mammographic evidence of malignancy. A 1 year screening mammogram is recommended. Based on the Tyrer Cuzick model (a risk assessment model) the patient's lifetime risk is 8.2% and her 10 year risk is 4.8%. According to the ACR, ACS, and NCCN guidelines, an annual breast MRI exam along with mammogram is recommended if the patient's lifetime risk is 20% or greater. This exam was interpreted at Station ID: [id number]. NOTE: For mammograms, a report in lay terms will be sent to the patient. Approximately 15% of breast malignancies will not be visualized mammographically. In the management of a palpable breast mass, a negative mammogram must not discourage biopsy of a clinically suspicious lesion. Electronically Signed By: Nicko kim/rahel:10/22/2023 11:55:17 letter sent: Normal Exam ACR BI-RADS Category 2: Benign Finding(s) 3342F
== END ==
PROVIDERS: PCP Family Medicine; Referring Provider Family Medicine; Visit Provider Family Medicine
DX: Z12.31 Encounter for screening mammogram for malignant neoplasm of breast (principal); R92.333 Mammographic heterogeneous density, bilateral breasts
CPT/HCPCS: 77063; 77067

== ENCOUNTER → 2023-10-29 14:30 | Outpatient (CLI) | payer MEDICARE, OTHER, SELFPAY ==
[2020-08-24 14:42] VITALS: BMI 31.6
--- NOTE | 2023-10-29 14:32 | DI.RAD.S_ITS ---
PROCEDURE: XR CERVICAL SPINE 2V OR 3V INDICATIONS: chronic shoulder, wrist, knee pain and neuropathy TECHNIQUE: 3 view(s) of the cervical spine were acquired. COMPARISON: None. FINDINGS: Bones: No fractures or dislocations to the C7 level. There are multilevel degenerative changes of the cervical spine with facet and uncovertebral arthropathy, disc height loss with degenerative endplate changes and spurring. The lateral masses of C1 appear intact on the odontoid view. No suspicious bony lesions. Soft tissues: No prevertebral soft tissue swelling. IMPRESSION: Mild multilevel degenerative changes of the lumbar spine. Dictated by: Raúl Orozco M.D. on 10/29/2023 at 16:43 Approved by: Raúl Orozco M.D. on 10/29/2023 at 16:43
--- NOTE | 2023-10-29 14:32 | DI.RAD.S_ITS ---
PROCEDURE: XR KNEE RT 3V INDICATIONS: chronic shoulder, wrist, knee pain and neuropathy TECHNIQUE: 3 views of the knee were acquired. COMPARISON: None. FINDINGS: Bones: No fractures or dislocations. Moderate osteoarthritic changes of the knee with moderate medial compartment joint space narrowing. Mild osteophytosis. No suspicious bony lesions. Soft tissues: Small joint effusion. No suspicious soft tissue calcifications. IMPRESSION: Moderate osteoarthritic changes of the knee. No acute osseous abnormalities. Dictated by: Raúl Orozco M.D. on 10/29/2023 at 16:44 Approved by: Raúl Orozco M.D. on 10/29/2023 at 16:44
--- NOTE | 2023-10-29 14:32 | DI.RAD.S_ITS ---
PROCEDURE: XR WRIST RT MIN 3V INDICATIONS: chronic shoulder, wrist, knee pain and neuropathy TECHNIQUE: 4 views of the wrist were acquired. COMPARISON: None. FINDINGS: Bones: No fractures or dislocations. No suspicious bony lesions. Soft tissues: No suspicious soft tissue calcifications. IMPRESSION: No acute bony abnormality. Dictated by: Raúl Orozco M.D. on 10/29/2023 at 16:47 Approved by: Raúl Orozco M.D. on 10/29/2023 at 16:48
--- NOTE | 2023-10-29 14:32 | DI.RAD.S_ITS ---
PROCEDURE: XR SHOULDER RT MIN 2V INDICATIONS: chronic shoulder, wrist, knee pain and neuropathy TECHNIQUE: 3 views of the shoulder were acquired. COMPARISON: None. FINDINGS: Bones: No fractures or dislocations. Moderate acromioclavicular joint degeneration. No suspicious bony lesions. Visualized ribs appear intact. Soft tissues: No suspicious soft tissue calcifications. IMPRESSION: 1. No acute bony abnormality. 2. Moderate acromioclavicular joint degeneration. Dictated by: Raúl Orozco M.D. on 10/29/2023 at 16:46 Approved by: Raúl Orozco M.D. on 10/29/2023 at 16:47
--- NOTE | 2023-10-29 14:32 | DI.RAD.S_ITS ---
PROCEDURE: XR LUMBAR SPINE 2-3V INDICATIONS: chronic shoulder, wrist, knee pain and neuropathy TECHNIQUE: 3 views of the lumbar spine were acquired. COMPARISON: None. FINDINGS: Bones: 5 [id number] vertebrae are present. Mild retrolisthesis of L3 on L4. Mild anterolisthesis of L5 on S1. There is multilevel facet arthropathy, worse at L4-5 and L5-S1. Mild multilevel disc height loss with degenerative endplate changes and spurring is present. No vertebral body compression fractures. No suspicious bony lesions. Soft tissues: Overlying bowel gas pattern is normal. No suspicious soft tissue calcifications. Atherosclerotic vascular calcifications. IMPRESSION: Multilevel degenerative changes of the lumbar spine. Dictated by: Raúl Orozco M.D. on 10/29/2023 at 16:44 Approved by: Raúl Orozco M.D. on 10/29/2023 at 16:46
== END ==
PROVIDERS: PCP Family Medicine; Referring Provider Family Medicine; Visit Provider Family Medicine
DX: M19.011 Primary osteoarthritis, right shoulder (principal); M47.812 Spondylosis without myelopathy or radiculopathy, cervical region; M47.816 Spondylosis without myelopathy or radiculopathy, lumbar region; M47.817 Spondylosis without myelopathy or radiculopathy, lumbosacral region; G62.9 Polyneuropathy, unspecified; M25.461 Effusion, right knee
CPT/HCPCS: 72040; 72100; 73030; 73110; 73562

== ENCOUNTER → 2023-11-02 08:29 | Outpatient (CLI) | payer MEDICARE, OTHER, SELFPAY ==
[2020-08-24 14:42] VITALS: BMI 31.6
[2023-11-02 09:36] LABS: Erythrocyte Sedimentation Rate 7 MM/HR (0-20)
[2023-11-02 09:38] LABS: C-Reactive Protein Quant 1.2 mg/dL (<1.0)
== END ==
LOC: LAB 08:30
PROVIDERS: PCP Family Medicine; Referring Provider Family Medicine; Visit Provider Family Medicine
DX: M19.90 Unspecified osteoarthritis, unspecified site (principal); G62.9 Polyneuropathy, unspecified
CPT/HCPCS: 36415; 85651; 86140

== ENCOUNTER → 2023-11-05 07:22 | Outpatient (CLI) | payer MEDICARE, OTHER, SELFPAY ==
[2020-08-24 14:42] VITALS: BMI 31.6
--- NOTE | 2023-11-05 07:25 | DI.MRI.S_ITS ---
PROCEDURE: MR LUMBAR SPINE WO CON INDICATIONS: chronic low back pain and neuropathy TECHNIQUE: Noncontrast sagittal T1 spin echo and T2 fast echo, sagittal STIR, and T2 fast spin echo through the lumbar spine. In cases with scoliosis, additional coronal T2 fast spin echo may be performed. COMPARISON: [facility], CR, XR LUMBAR SPINE 2-3V, 10/29/2023, 14:32. FINDINGS: Image quality: Excellent. Alignment and Curvature: Trace retrolisthesis L3-4. Otherwise normal bone alignment. Bone Marrow: Small vertebral body hemangiomas in T12 and L1. No suspicious marrow signal or significant vertebral body height loss. Spinal Cord: Conus medullaris terminates at the L1 level. Visualized cord demonstrates normal signal and size. Paraspinous Soft Tissues: No paravertebral masses. T12-L1: Normal appearance. L1-L2: Normal appearance. L2-L3: Mild disc desiccation. Minor circumferential disc bulge. L3-L4: Disc desiccation, mild to moderate disc height loss, and circumferential disc bulge. Slight encroachment by disc material on right lateral recess nerve root. No significant central canal or foraminal stenosis. L4-L5: Mild posterior disc height loss. Small broad-based posterior disc bulge without significant central canal, lateral recess, or neural foraminal narrowing. Mild facet arthropathy and ligamentum flavum hypertrophy. L5-S1: Irregular pars defects without listhesis at L5. Mild disc desiccation without significant height loss, foraminal, or central canal stenosis. IMPRESSION: L4-5 facet arthropathy and L5-S1 pars defects may be symptomatic. No significant central canal or foraminal stenosis. Dictated by: Roxanna Tate M.D. on 11/05/2023 at 10:35 Approved by: Roxanna Tate M.D. on 11/05/2023 at 10:43
== END ==
PROVIDERS: PCP Family Medicine; Referring Provider Family Medicine; Visit Provider Family Medicine
DX: M54.16 Radiculopathy, lumbar region (principal); G89.29 Other chronic pain; M47.816 Spondylosis without myelopathy or radiculopathy, lumbar region
CPT/HCPCS: 72148

== ENCOUNTER → 2023-11-07 10:15 | Outpatient (CLI) | payer MEDICARE, OTHER, SELFPAY ==
[2020-08-24 14:42] VITALS: BMI 31.6
--- NOTE | 2023-11-07 10:17 | DI.MRI.S_ITS ---
PROCEDURE: MR HIP RT WO CON INDICATIONS: Chronic Bilateral hip pain TECHNIQUE: Noncontrast coronal T1 spin echo and STIR through the bony pelvis. Coronal and axial T2 fast spin echo with fat saturation, sagittal T1 spin echo, and oblique axial T2 fast spin echo with fat saturation through the hip. COMPARISON: None. FINDINGS: Image quality: Excellent. Bones and joints: Bone marrow of the pelvic ring and proximal femurs show normal signal throughout. No intraosseous lesions or fractures. No avascular necrosis of the femoral head. Mild disc desiccation and facet hypertrophy are seen in the included spine. Tendons and ligaments: There is tendinosis and moderate grade partial tearing of the distal right gluteus medius and minimus tendons at their insertions onto the greater trochanter with small trochanteric and subgluteal bursal effusions. The proximal iliotibial band appears intact. The iliopsoas tendon appears intact, without adjacent bursal fluid collections. The origin of the hamstring tendon demonstrates mild tendinosis. The tendons for the direct and indirect heads of the rectus femoris muscle appear intact. Labrum and cartilage: There is diffuse labral degeneration. No acute displaced tear is seen. Grade 2-3 cartilage irregularity is seen in the superior hip with small marginal osteophytes. There is normal morphology of the femoral head and acetabulum. Soft tissues: Visualized muscles demonstrate mild generalized fatty infiltration without focal disproportionate atrophy. Small fat containing right inguinal hernia versus lipoma within the inguinal canal. Quadratus femoris muscle demonstrates no internal edema to suggest ischiofemoral impingement. The proximal sciatic neurovascular bundle appears normal adjacent to the hamstring tendons. Status post hysterectomy. Multiple diverticula are seen in the bladder. Pelvic soft tissues demonstrate no acute abnormality. IMPRESSION: 1. Moderate partial tearing of the distal right gluteus medius and minimus tendons at their distal insertions superimposed on chronic tendinosis. Small adjacent trochanteric and subgluteal bursal effusions. Findings are overall worse on the right than on the left. 2. 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 Mild diffuse labral degeneration. 3. Mild proximal right hamstring tendinosis. 4. Suspected small fat containing right inguinal hernia. Approved by: Nicko Caro M.D. on 11/08/2023 at 12:37
--- NOTE | 2023-11-07 10:17 | DI.MRI.S_ITS ---
PROCEDURE: MR HIP LT WO CON INDICATIONS: Bilateral hip pain TECHNIQUE: Noncontrast coronal T1 spin echo and STIR through the bony pelvis. Coronal and axial T2 fast spin echo with fat saturation, sagittal T1 spin echo, and oblique axial T2 fast spin echo with fat saturation through the hip. COMPARISON: None. FINDINGS: Image quality: Excellent. Bones and joints: Bone marrow of the pelvic ring and proximal femurs show normal signal throughout. No intraosseous lesions or fractures. No avascular necrosis of the femoral head. Mild disc desiccation and facet hypertrophy are seen in the included spine. Tendons and ligaments: Small low grade partial tear of the distal left gluteus medius tendon at its insertion onto the greater trochanter superimposed on gluteus medius and minimus tendinosis. Small adjacent trochanteric bursal effusion. The proximal iliotibial band appears intact. The iliopsoas tendon appears intact, without adjacent bursal fluid collections. Mild left proximal hamstring tendinosis. The tendons for the direct and indirect heads of the rectus femoris muscle appear intact. Labrum and cartilage: Diffuse labral degeneration is seen without an acute displaced tear. There is mild grade 2 chondromalacia in the superior aspect of the hip with small marginal osteophytes. There is normal morphology of the femoral head and acetabulum. Soft tissues: Generalized grade 2 fatty infiltration of the visualized musculature without focal disproportionate atrophy. Quadratus femoris muscle demonstrates no internal edema to suggest ischiofemoral impingement. The proximal sciatic neurovascular bundle appears normal adjacent to the hamstring tendons. Status post hysterectomy. Multiple bladder diverticula are present. Suspected small fat containing right inguinal hernia. No acute abnormality is seen in the pelvic soft tissues. IMPRESSION: 1. Focal partial tearing of the distal left gluteus medius tendon at its insertion onto the greater trochanter superimposed on gluteus medius and minimus tendinosis. Small trochanteric bursal effusion. 2. 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 3. Mild proximal left hamstring tendinosis. Approved by: Nicko Caro M.D. on 11/08/2023 at 12:36
== END ==
LOC: MRI 10:16
PROVIDERS: PCP Family Medicine; Referring Provider Family Medicine; Visit Provider Family Medicine
DX: S76.011A Strain of muscle, fascia and tendon of right hip, initial encounter (principal); S76.012A Strain of muscle, fascia and tendon of left hip, initial encounter; M94.251 Chondromalacia, right hip; M94.252 Chondromalacia, left hip; M25.451 Effusion, right hip; M25.452 Effusion, left hip; M25.551 Pain in right hip; M25.552 Pain in left hip; G89.29 Other chronic pain; Z90.710 Acquired absence of both cervix and uterus
CPT/HCPCS: 73721

== ENCOUNTER 2023-11-19 12:42 | Day surgery (SDC) | payer MEDICARE, OTHER, SELFPAY ==
[2020-08-24 14:42] VITALS: BMI 31.6
--- NOTE | 2023-11-19 | PATH_ITS ---
[facility] Accession Number: [id number] No. of containers..01 Tissue . 01 Material submitted: . esophagus, E-G Junction - GE JUNCTION . 01 Diagnosis: GE JUNCTION: Squamous mucosa with no diagnostic alterations. Eosinophils are not increased. STO 11/26/2023 1138 Local . 01 Electronically signed: . Rigoberto Mcdaniel MD, Pathologist NPI- [id number] . 01 Gross description: . GE JUNCTION: Received in formalin is 1 fragment(s) of osullivan, soft tissue measuring 0.3 x 0.2 x 0.2 cm submitted entirely in 1 cassette(s) /CAITY 11/26/2023 1138 Local . 01 Pathologist provided ICD-10: K21.9 . 01 CPT . 611822 Specimen Comment: A courtesy copy of this report has been sent to [phone] Performed at: [address] [facility] [address], [place], [place] [id number] MD Rigoberto Mcdaniel MD Phone: [phone]
--- NOTE | 2023-11-19 13:09 | PM.PREOP ---
Pre-operative Note Interval Note History & Physical reviewed/Exam performed by Physician: Yes Changes to H&P: No
[2023-11-19 13:25] VITALS: BP 153/90; PULSE 104; RESP 18; TEMP 36.8; O2SAT 97
[2023-11-19 14:34] VITALS: BP 137/68; PULSE 100; RESP 14; TEMP 36.1; O2SAT 96
[2023-11-19 14:38] VITALS: BP 150/91; RESP 14; O2SAT 96
[2023-11-19] MEDS: LACTATED RINGERS 1,000 ML 42 ML IV (14:40)
[2023-11-19 14:44] VITALS: BP 135/90; PULSE 98; RESP 16; O2SAT 96
--- NOTE | 2023-11-19 14:44 | PM.OP.EGD ---
Operative Date/Time/Diagnoses Date of procedure: 11/19/23 Time of procedure: 14:44 Pre-op diagnosis: GERD Post-op diagnosis: other (hiatal hernia) Procedure & Clinicians Study performed: Esophagogastroduodenoscopy Same procedure as scheduled: Yes Indications: 67-year-old woman chronic GERD here for EGD Surgeon: Ottoniel Carrera Procedure Notes Procedure in detail: The history and physical was performed/updated and the patient is ASA class is 2. The procedure was discussed in detail with the patient. Potential risks complications including infection, bleeding, missed diagnosis, perforation, need for surgery, and were explained. Their questions were answered and informed consent was obtained. Patient placed in left lateral decubitus position. Time out was performed. Procedural sedation was administered by Anesthesia. A bite block was placed. the scope was inserted into the mouth and advanced through the esophagus and into the stomach. The pylorus was intubated and the duodenum was examined to the 2nd portion. The scope was then withdrawn into the stomach and was retroflexed. The stomach was decompressed and scope was withdrawn slowly through the esophagus. FINDINGS -hiatal hernia -mild esophagitis. Biopsies of GE junction at 35 cm taken with forceps The patient tolerated the procedure well and will be discharged when they meet criteria. Specimen(s): other (GE junction) Impression: Hiatal hernia Post-procedure Recommendations: Continue medication(s) (Omeprazole) Disposition: same day surgery
== END 2023-11-19 15:00 | disposition home or self-care (01) ==
PROVIDERS: PCP Family Medicine; Referring Provider Surgery; Visit Provider Surgery
PROC: 0DJ08ZZ Inspection of Upper Intestinal Tract, Via Natural or Artificial Opening Endoscopic (ICD-10-PCS; CPT 43235; principal; 2023-11-19 14:30)
DX: K21.00 Gastro-esophageal reflux disease with esophagitis, without bleeding (principal); K44.9 Diaphragmatic hernia without obstruction or gangrene
CPT/HCPCS: 43239; J2704

== ENCOUNTER → 2023-12-24 09:55 | Outpatient (CLI) | payer MEDICARE, OTHER, SELFPAY ==
[2020-08-24 14:42] VITALS: BMI 31.6
[2023-12-24 12:04] LABS: C-Reactive Protein Quant < 0.5 mg/dL (<1.0); Cholesterol 201 mg/dL (140-199); HDL Cholesterol 53 mg/dL (40-60); LDL Cholesterol Calculated 103 mg/dL (<100); Triglycerides 223 mg/dL (35-150); Uric Acid 7.7 mg/dL (2.5-6.2)
[2023-12-24 12:28] LABS: TSH w/ Reflex to FT4 2.13 uIU/mL (0.47-4.68)
[2023-12-24 13:01] LABS: Erythrocyte Sedimentation Rate 4 MM/HR (0-20)
[2023-12-25 07:12] LABS: Apolipoprotein B 106 mg/dL (<90)
== END ==
PROVIDERS: PCP Family Medicine; Referring Provider Family Medicine; Visit Provider Family Medicine
DX: M81.0 Age-related osteoporosis without current pathological fracture (principal); R20.2 Paresthesia of skin; M79.609 Pain in unspecified limb; K21.9 Gastro-esophageal reflux disease without esophagitis; M25.551 Pain in right hip; G89.29 Other chronic pain; M25.571 Pain in right ankle and joints of right foot
CPT/HCPCS: 36415; 80061; 82172; 84443; 84550; 85651; 86140

== ENCOUNTER → 2024-07-10 14:00 | Outpatient (CLI) | payer MEDICARE, OTHER, SELFPAY ==
[2020-08-24 14:42] VITALS: BMI 31.6
--- NOTE | 2024-07-10 | DI.RAD.S_ITS ---
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 [facility], CR, XR DEXA AXIAL SKELETON, 09/18/2020, 13:33. FINDINGS: Lumbar Spine: Bone mineral density 0.851 g/cm2, T score -1.8, previously -1.9. Left Hip: Bone mineral density 0.755 g/cm2, T score -1.5, previously -1.6. Left Femoral Neck: Bone mineral density 0.643 g/cm2, T score -1.9, previously -2.1. Fracture Risk Calculation (when applicable): 10-year fracture risk of a major osteoporotic fracture 11 percent and of a hip fracture 1.9 percent. (T score greater or equal to -1.0 to: NORMAL) (T score from -1.1 to -2.4: OSTEOPENIA) (T score less than or equal to -2.5: OSTEOPOROSIS) IMPRESSION: Osteopenia. Follow-up guidelines as follows: Osteoporosis: Consider a repeat DEXA and Vertebral Fracture Assessment (VFA) exam in 2 years or sooner if medically necessary, to reassess this patient's status. Osteopenia: Consider a repeat DEXA in 2-3 years to reassess this patient's status, or if there is a new clinical indication. Normal: Consider a repeat DEXA in 5 years or sooner, or if there is a new clinical indication. All treatment decisions require clinical judgment and consideration of individual patient factors, including patient preferences, comorbidities, previous drug use, risk factors not captured in the FRAX model (e.g., frailty, falls, vitamin D deficiency, increased bone turnover, interval significant decline in bone density ) and possible under- or over-estimation of fracture risk by FRAX. In addition, the NOF Guide recommends that FDA-approved medical therapies be considered in postmenopausal women and men age >= 50 years with a: * Hip or vertebral (clinical or morphometric) fracture * T-score of <=-2.5 at the spine or hip * Ten-year fracture probability by FRAX of >= 3% for hip fracture or >=20% for major osteoporotic fracture. People with diagnosed cases of osteoporosis or at high risk for fracture should have regular bone mineral density tests. For patients eligible for Medicare, routine testing is allowed once every 2 years. The testing frequency can be increased to one year for patients who have rapidly progressing disease, those who are receiving or discontinuing medical therapy to restore bone mass, or have additional risk factors. Dictated by: Herve Magallanes M.D. on 07/10/2024 at 18:19 Approved by: Herve Magallanes M.D. on 07/10/2024 at 18:20
== END ==
PROVIDERS: PCP Family Medicine; Referring Provider Internal Medicine Rheumatology; Visit Provider Internal Medicine Rheumatology
DX: Z79.52 Long term (current) use of systemic steroids (principal); M35.3 Polymyalgia rheumatica; M85.89 Other specified disorders of bone density and structure, multiple sites
CPT/HCPCS: 77080

== ENCOUNTER → 2024-10-25 12:57 | Outpatient (CLI) | payer MEDICARE, OTHER, SELFPAY ==
[2020-08-24 14:42] VITALS: BMI 31.6
--- NOTE | 2024-10-25 12:58 | DI.MG.S_ITS ---
MM screening mammo BI: 10/25/2024. BI-RADS: 2 CLINICAL: 68-year old female for bilateral screening mammogram. Tyrer-Cuzick lifetime risk of 6.9%. No personal or first-degree family history of breast cancer. The patient had a prior left breast biopsy. PRIOR EXAMS 10/22/2023, 10/19/2022, 10/13/2021, 03/31/2021, 10/09/2020. MAMMOGRAPHY TECHNIQUE: 2D and 3D (tomosynthesis) digital mammographic views obtained, with additional images as needed for full coverage. Current study was also evaluated with a Computer Aided Detection (CAD) system. DENSITY C. The breasts are heterogeneously dense, which may obscure small masses. MAMMOGRAPHY FINDINGS Right: No suspicious mass, asymmetry, microcalcification, or other abnormality seen. Left: Surgical clip present on the left. Benign-appearing post-surgical changes noted on the left. There are no suspicious masses, calcifications, or other findings in the breast. IMPRESSION: Right * No evidence of malignancy. Left * No evidence of malignancy with benign findings. RECOMMENDATIONS Bilateral * Annual screening mammography. OVERALL ASSESSMENT CATEGORY BI-RADS-2: Benign. The [employer] recommends annual screening mammography beginning at age 40 for women with average risk of breast cancer. ELECTRONICALLY SIGNED: Ivy Chowdhury M.D. on 10/30/2024 at 12:45:31 AM PT Interpreting Station ID: [id number]
== END ==
PROVIDERS: PCP Family Medicine; Referring Provider Family Medicine; Visit Provider Family Medicine
DX: Z12.31 Encounter for screening mammogram for malignant neoplasm of breast (principal); R92.333 Mammographic heterogeneous density, bilateral breasts
CPT/HCPCS: 77063; 77067

== ENCOUNTER → 2024-12-26 11:40 | Outpatient (CLI) | payer MEDICARE, OTHER, SELFPAY ==
[2020-08-24 14:42] VITALS: BMI 31.6
--- NOTE | 2024-12-26 11:42 | DI.RAD.S_ITS ---
PROCEDURE: XR RIBS LT MIN 3V W CXR1V INDICATIONS: L rib pain due to Fall TECHNIQUE: 2 views of the ribs were acquired, along with a single view chest. COMPARISON: None. FINDINGS: Surgical changes and devices: None. Bones and chest wall: No fractures or dislocations. No suspicious bony lesions. Overlying soft tissues appear unremarkable. Lungs and pleura: No pleural effusions or pneumothorax. Lungs appear clear. Mediastinum: Mediastinal contours appear normal. Heart size is normal. IMPRESSION: No displaced rib fracture or pneumothorax. Dictated by: Harinder Vazquez M.D. on 12/27/2024 at 0:27 Approved by: Harinder Vazquez M.D. on 12/27/2024 at 0:39
== END ==
PROVIDERS: PCP Family Medicine; Referring Provider Family Medicine; Visit Provider Family Medicine
DX: R07.81 Pleurodynia (principal)
CPT/HCPCS: 71101

== ENCOUNTER → 2025-02-01 09:04 | Outpatient (CLI) | payer MEDICARE, OTHER, SELFPAY ==
[2020-08-24 14:42] VITALS: BMI 31.6
[2025-02-01 10:04] LABS: Add Manual Diff / Slide Review NO; Hematocrit 43.9 % (36-46); Hemoglobin 15.0 g/dL (12.0-16.0); Lymphocytes Absolute Auto 1500 /uL (1100-4500); Mean Corpuscular HGB Conc 34.1 % (30-36); Mean Corpuscular Hemoglobin 32.4 PG (26-34); Mean Corpuscular Volume 95.1 fL (80-100); Platelet Count 211 X10^3/uL (150-400)
[2025-02-01 10:18] LABS: Alanine Aminotransferase 27 IU/L (<35); Albumin 4.5 g/dL (3.5-5.0); Albumin Globulin Ratio 1.6 (1.0-2.8); Alkaline Phosphatase 92 U/L (38-126); Blood Urea Nitrogen 15 mg/dL (7-17); Calcium 9.3 mg/dL (8.4-10.2); Carbon Dioxide 29 mmol/L (22-32); Chloride 101 mmol/L (98-107); Cholesterol 199 mg/dL (140-199); Estimated Glomerular Filt Rate > 60 mL/min (>60); Globulin 2.9 g/dL (1.7-4.1); Glucose 111 mg/dL (70-99); HDL Cholesterol 68 mg/dL (40-60); HEMOLYSIS < 15 (0-50); Potassium 4.5 mmol/L (3.4-5.1); Sodium 138 mmol/L (137-145); Total Protein 7.4 g/dL (6.3-8.2); Triglycerides 107 mg/dL (35-150); Uric Acid 7.3 mg/dL (2.5-6.2)
[2025-02-01 10:19] LABS: Hemoglobin A1C% w Est Avg Glu 5.5 % (4.0-6.0)
[2025-02-01 10:47] LABS: TSH w/ Reflex to FT4 2.97 uIU/mL (0.47-4.68)
[2025-02-08 16:12] LABS: Aldosterone/Renin Activity Rat >16.8 (.); Plama Renin, LC/MS/MS <0.167 ng/mL/hr (.)
== END ==
PROVIDERS: PCP Family Medicine; Referring Provider Family Medicine; Visit Provider Family Medicine
DX: Z00.00 Encounter for general adult medical examination without abnormal findings (principal); K21.9 Gastro-esophageal reflux disease without esophagitis; R73.9 Hyperglycemia, unspecified; E78.5 Hyperlipidemia, unspecified; R20.2 Paresthesia of skin; G89.29 Other chronic pain; M25.551 Pain in right hip; M25.552 Pain in left hip; M79.609 Pain in unspecified limb; G47.33 Obstructive sleep apnea (adult) (pediatric); I10 Essential (primary) hypertension
CPT/HCPCS: 36415; 80053; 80061; 82043; 82088; 82570; 83036; 84244; 84443; 84550; 85025